=== PATIENT | female | born 1980 | race Caucasian/White ===

== ENCOUNTER 2017-06-16 19:57 | Emergency (ER) | payer BC ==
[2017-06-16 21:42] LABS: Basophils % (A) 0 %; CH 31.2; CHCM 35.5; Eosinophils # (A) 0.1 k/uL (0-0.7); Eosinophils % (A) 1 %; HCT 36.9 % (34.0-46.0); HDW 2.43; HGB 12.8 gm/dL (11.4-16.0); Luc % (Auto) 1; Lymphocytes # (A) 1.2 k/uL (1.0-4.8); Lymphocytes % (A) 10 %; MCH 30.6 pg (25.0-35.0); MCHC 34.7 g/dL (31.0-37.0); Mean Platelet Volume 6.8; Monocytes # (A) 0.4 k/uL (0-1.0); Monocytes % (A) 3 %; Neutrophils # (A) 10.3 k/uL (1.3-7.7); Neutrophils % (A) 85 %; RBC 4.19 m/uL (3.80-5.40); RDW 13.2 % (11.5-15.5); WBC 12.1 k/uL (3.8-10.6); WBC (Perox) 12.13
[2017-06-16 21:43] LABS: Appearance,Urine Clear (Clear); Bacteria,Urine Rare /hpf; Bilirubin,Urine Negative (Negative); Glucose,Urine (UA) Negative (Negative); Ketones,Urine Trace (Negative); Leukocyte Esterase,Urine Moderate (Negative); MCV 88.1 fL (80.0-100.0); Mucus,Urine Rare /hpf; Nitrite,Urine Negative (Negative); Particle Count 885; Protein,Urine Negative (Negative); RBC,Urine 1 /hpf (0-5); Specific Gravity,Urine 1.004 (1.001-1.035); Squamous Epithelial Cell,Urine <1 /hpf (0-4); UA Billing (MACRO vs. MICRO) MICRO; Urobilinogen,Urine <2.0 mg/dL (<2.0); WBC,Urine 16 /hpf (0-5)
[2017-06-16 21:47] LABS: Anion Gap 11 mmol/L; Blood Urea Nitrogen 8 mg/dL (7-17); Calcium 9.8 mg/dL (8.4-10.2); Carbon Dioxide 19 mmol/L (22-30); Chloride 106 mmol/L (98-107); Glucose 104 mg/dL (74-99); Non-African American GFR(MDRD) >60 (>60 ml/min/1.73 sqM); Potassium 3.4 mmol/L (3.5-5.1); Sodium 136 mmol/L (137-145)
[2017-06-16] MEDS ORDERED: NITROFURANTOIN MONOHYD/M-CRYST 100 MG CAP PO STA (22:08)
--- NOTE | 2017-06-16 22:15 | ED ---
Abdominal Pain HPI - General Chief Complaint: Abdominal Pain Stated Complaint: Back/side pain Time Seen by Provider: 06/16/17 20:36 Source: patient Mode of arrival: ambulatory Limitations: no limitations - History of Present Illness Initial Comments: patient is a 36-year-old female, who presents with a chief complaint of left flank abdominal pain since 2:00 this afternoon. Patient states the pain initially started in her flank. She described the pain as sharp and stabbing. Over the day, the pain has moved down toward her groin. The patient states that initially the pain is very intense however it is gotten better over time. The patient states that she does have a history of kidney stones and this is reminiscent. She does not identify any aggravating or alleviating factors. Timing is constant. Patient is 16 weeks and states that she has had an uneventful . She denies any vaginal discharge or bleeding at this time. - Related Data Home Medications Medication Instructions Recorded Confirmed Pnv with Ca,No.72/Iron/FA 1 tab PO DAILY 06/06/14 06/16/17 [ Plus Multivitamin Tab] Loperamide HCl [Imodium A-D] 2 mg PO DAILY PRN 06/16/17 06/16/17 Previous Rx's Medication Instructions Recorded Nitrofurantoin Monohyd/M-Cryst 100 mg PO Q12HR #9 cap 06/16/17 [Macrobid] Allergies Allergy/AdvReac Type Severity Reaction Status Date / Time No Known Allergies Allergy Verified 06/16/17 20:32 Review of Systems ROS Statement: Those systems with pertinent positive or pertinent negative responses have been documented in the HPI. ROS Other: All systems not noted in ROS Statement are negative. Genitourinary: Reports: dysuria Past Medical History Past Medical History: GERD/Reflux, Skin Disorder Additional Past Medical History / Comment(s): gestational diabetes with first two pregnancies, eczema, on Rx for UTI; history of IBS History of Any Multi-Drug Resistant Organisms: None Reported Past Surgical History: Adenoidectomy, Section, Cholecystectomy, Hernia Repair Additional Past Surgical History / Comment(s): myringotomy Past Anesthesia/Blood Transfusion Reactions: Previous Problems w/ Anesthesia Additional Past Anesthesia/Blood Transfusion Reaction / Comment(s): "i feel loopy after" Past Psychological History: No Psychological Hx Reported Smoking Status: Never smoker Past Alcohol Use History: None Reported Past Drug Use History: None Reported - Past Family History Mother Family Medical History: Cancer Additional Family Medical History / Comment(s): Cervical General Exam Limitations: no limitations General appearance: alert, in no apparent distress Head exam: Present: atraumatic, normocephalic ENT exam: Present: mucous membranes moist Respiratory exam: Present: normal lung sounds bilaterally Cardiovascular Exam: Present: regular rate, normal rhythm GI/Abdominal exam: Present: soft. Absent: distended, tenderness Rectal exam: Present: deferred Back exam: Present: CVA tenderness (L). Absent: CVA tenderness (R) Neurological exam: Present: alert, oriented X3, CN II-XII intact, normal gait Psychiatric exam: Present: normal affect, normal mood Skin exam: Present: warm, dry, intact Course Vital Signs 06/16/17 20:19 Temperature 99.1 F Pulse Rate 77 Respiratory 20 Rate Blood Pressure 100/59 O2 Sat by Pulse 100 Oximetry Medical Decision Making - Medical Decision Making patient is a 36-year-old female, 16 weeks , who presents with a chief complaint of flank pain. History and physical examination are consistent with a kidney stone, patient has a history of kidney stones. The patient is I discussed evaluation options with her. The decision was made to check a urinalysis and to forego imaging at this time. Basic lab work was sent. Bedside ultrasound shows a viable intrauterine . Heart rate is 151. 10:13 PM Lab evaluation this patient is unremarkable. Renal function appears B within normal limits. There is scant blood in the urine though there is evidence of infection. Patient was given a first dose of Macrobid in the emergency department. Patient will be prescribed Macrobid on the outpatient basis. On reevaluation, the patient states that her pain is improved. At this time, it is likely that the patient had a renal stone and passed it. I discussed expectant management with her and she is agreeable. I instructed her to use Tylenol for pain control. The patient will follow up with primary care and OB/ [employer]. She is instructed to return to the emergency department if her symptoms worsen or change in anyway. She was given explicit signs and symptoms that should prompt return visit to the emergency department. Her and her state understanding. - Lab Data Result diagrams: 06/16/17 21:25 06/16/17 21:25 Lab Results 06/16/17 06/16/17 06/16/17 Range/Units 21:25 21:25 21:25 WBC 12.1 H (3.8-10.6) k/uL RBC 4.19 (3.80-5.40) m/uL Hgb 12.8 (11.4-16.0) gm/dL Hct 36.9 (34.0-46.0) % MCV 88.1 D (80.0-100.0) fL MCH 30.6 (25.0-35.0) pg MCHC 34.7 (31.0-37.0) g/dL RDW 13.2 (11.5-15.5) % Plt Count 217 (150-450) k/uL Neutrophils % 85 % Lymphocytes % 10 % Monocytes % 3 % Eosinophils % 1 % Basophils % 0 % Neutrophils # 10.3 H (1.3-7.7) k/uL Lymphocytes # 1.2 (1.0-4.8) k/uL Monocytes # 0.4 (0-1.0) k/uL Eosinophils # 0.1 (0-0.7) k/uL Basophils # 0.0 (0-0.2) k/uL Sodium 136 L (137-145) mmol/L Potassium 3.4 L (3.5-5.1) mmol/L Chloride 106 (98-107) mmol/L Carbon Dioxide 19 L (22-30) mmol/L Anion Gap 11 mmol/L BUN 8 (7-17) mg/dL Creatinine 0.44 L (0.52-1.04) mg/dL Est GFR (MDRD) Af Amer >60 (>60 ml/min/1.73 sqM) Est GFR (MDRD) Non-Af >60 (>60 ml/min/1.73 sqM) Glucose 104 H (74-99) mg/dL Calcium 9.8 (8.4-10.2) mg/dL Urine Color Light Yellow Urine Appearance Clear (Clear) Urine pH 6.0 (5.0-8.0) Ur Specific [place] 1.004 (1.001-1.035) Urine Protein Negative (Negative) Urine Glucose (UA) Negative (Negative) Urine Ketones Trace H (Negative) Urine Blood Moderate H (Negative) Urine Nitrite Negative (Negative) Urine Bilirubin Negative (Negative) Urine Urobilinogen <2.0 (<2.0) mg/dL Ur Leukocyte Esterase Moderate H (Negative) Urine RBC 1 (0-5) /hpf Urine WBC 16 H (0-5) /hpf Ur Squamous Epith Cells <1 (0-4) /hpf Urine Bacteria Rare H (None) /hpf Urine Mucus Rare H (None) /hpf Disposition Clinical Impression: Ureterolithiasis, Flank pain Disposition: HOME SELF-CARE Condition: Good Instructions: Abdominal Pain in (ED), Kidney Stones (ED) Prescriptions: Nitrofurantoin Monohyd/M-Cryst [Macrobid] 100 mg PO Q12HR #9 cap Referrals: Mark Alfonso MD [Primary Care Provider] - 1-2 days
[2017-06-16 22:47] VITALS: BP 105/62; PULSE 59; RESP 18; TEMP 98.2
== END 2017-06-16 22:45 | disposition home or self-care (01) ==
LOC: EC 19:57
DX: O99.89 Other specified diseases and conditions complicating pregnancy, childbirth and the puerperium (principal); N20.1 Calculus of ureter; Z3A.16 16 weeks gestation of pregnancy; Z79.899 Other long term (current) drug therapy; Z90.49 Acquired absence of other specified parts of digestive tract
CPT/HCPCS: 36415; 80048; 81001; 85025; 99284

== ENCOUNTER → 2017-09-14 | Outpatient (CLI) | payer BC ==
[2017-09-14 12:53] LABS: HCT 34.7 % (34.0-46.0); HGB 11.1 gm/dL (11.4-16.0); MCH 30.8 pg (25.0-35.0); MCHC 31.9 g/dL (31.0-37.0); MCV 96.4 fL (80.0-100.0); Platelet Count 212 k/uL (150-450); RBC 3.61 m/uL (3.80-5.40); RDW 13.5 % (11.5-15.5)
== END | disposition home or self-care (01) ==
LOC: LABWHC1 11:14
PROVIDERS: ATTEND Obstetrics & Gynecology
DX: Z34.82 Encounter for supervision of other normal pregnancy, second trimester (principal); Z3A.00 Weeks of gestation of pregnancy not specified
CPT/HCPCS: 36415; 82950; 85027

== ENCOUNTER → 2017-09-22 | Outpatient (CLI) | payer BC ==
[2017-09-22 13:05] LABS: Glucose 3 Hour, Gest 147 mg/dL
== END | disposition home or self-care (01) ==
LOC: LABWHC1 08:43
PROVIDERS: ATTEND Obstetrics & Gynecology
DX: O99.810 Abnormal glucose complicating pregnancy (principal); Z3A.00 Weeks of gestation of pregnancy not specified
CPT/HCPCS: 36415; 82951; 82952

== ENCOUNTER 2017-11-25 08:52 | Inpatient (IN) | payer BC ==
[2017-11-25 09:41] LABS: Glucose,Whole Blood 112 mg/dL (75-99)
[2017-11-25] MEDS: LACTATED RINGERS 1,000 ML IV SCH ×3 (09:53→20:40)
[2017-11-25 10:06] LABS: Appearance,Urine Cloudy (Clear); Bacteria,Urine Occasional /hpf; Bilirubin,Urine Negative (Negative); Blood,Urine Small (Negative); Color,Urine Yellow; Glucose,Urine (UA) Negative (Negative); Ketones,Urine 2+ (Negative); Leukocyte Esterase,Urine Large (Negative); Mucus,Urine Rare /hpf; Nitrite,Urine Negative (Negative); Protein,Urine Trace (Negative); RBC,Urine 14 /hpf (0-5); Specific Gravity,Urine 1.011 (1.001-1.035); Squamous Epithelial Cell,Urine 8 /hpf (0-4); Urobilinogen,Urine <2.0 mg/dL (<2.0); WBC,Urine 176 /hpf (0-5)
[2017-11-25 10:09] VITALS: RESP 18
[2017-11-25 10:14] LABS: Basophils % (A) 0 %; Eosinophils # (A) 0.1 k/uL (0-0.7); Eosinophils % (A) 1 %; HCT 35.5 % (34.0-46.0); HGB 12.3 gm/dL (11.4-16.0); Lymphocytes # (A) 0.8 k/uL (1.0-4.8); Lymphocytes % (A) 6 %; MCHC 34.6 g/dL (31.0-37.0); MCV 89.6 fL (80.0-100.0); Mean Platelet Volume 8.3; Monocytes # (A) 0.7 k/uL (0-1.0); Monocytes % (A) 5 %; Neutrophils # (A) 12.2 k/uL (1.3-7.7); Neutrophils % (A) 88 %; Platelet Count 155 k/uL (150-450); RBC 3.96 m/uL (3.80-5.40); RDW 14.4 % (11.5-15.5)
--- NOTE | 2017-11-25 10:26 | US ---
EXAMINATION TYPE: US kidneys/renal and bladder DATE OF EXAM: 11/25/2017 COMPARISON: NONE CLINICAL HISTORY: rule out kidney stones. EXAM MEASUREMENTS: Right Kidney: 11.1 x 5.5 x 4.4 cm Left Kidney: 13.3 x 6.9 x 5.6 cm Right Kidney: Echogenic foci visualized in the lower pole measuring 0.7 cm. Small amount of hydroneph rosis visualized Left Kidney: Echogenic foci visualized lower pole measuring 0.9 cm Bladder: Not distended Bilateral Jets seen: No, bladder not distended IMPRESSION: Nonobstructing nephrolithiasis.
[2017-11-25] MEDS: BUTORPHANOL 1 MG/ML 1 ML VIAL IV PRN ×3 (10:35→16:28)
[2017-11-25] MEDS: ceFAZolin IN SWFI 2 GM/20 ML SYRINGE IVP SCH ×2 (10:40→19:17)
[2017-11-25 10:54] VITALS: BMI 32.2
--- NOTE | 2017-11-25 11:24 | P.MSEPDOC ---
Presenting Problems - Arrival Data Date of Arrival on Unit: 11/25/17 Time of Arrival on Unit: 08:52 Mode of Transport: Portable - Complaint OB-Reason for Admission/Chief Complaint: Pain Comment: back pain that wraps around to the front Medical History - Information : 5 Para: 3 Term: 3 : 0 Abortions: Spontaneous or Elective: 1 Number of Living Children: 3 - Gestational Age Gestational Age by ORTEGA (wks/days): 38 Weeks and 2 Days - History Complications: GDM Review of Systems - Review of Systems Constitutional: No problems Breast: No problems ENT: No problems Cardiovascular: No problems Respiratory: No problems Gastrointestinal: No problems Genitourinary: No problems Musculoskeletal: No problems Neurological: No problems Skin: No problems Vital Signs - Temperature Temperature: 98.7 F Temperature Source: Temporal Artery Scan - Pulse Right Brachial Pulse Rate: 121 Pulse Assessment Method: Automatic Cuff - Respirations Respiratory Rate: 18 Oxygen Delivery Method: Room Air O2 Sat by Pulse Oximetry: 94 - Blood Pressure Right Arm Blood Pressure: 118/69 Blood Pressure Mean: 85 Blood Pressure Source: Automatic Cuff Medical Screen Scoring (Pre) - Cervical Exam Dilation: 0 cm = 0 Effacement: More than 50% = 2 Membranes: Intact - Uterine Contractions Frequency: > or = 36 weeks =2 Duration: > 40 seconds = 2 Intensity: N/A - Maternal Vital Signs Maternal Temperature: N/A Maternal Blood Pressure: N/A Signs of Preeclampsia: N/A Maternal Respirations: N/A - Pain Assessment Pain Location and Character: Left, Back Pain Scale Used: Numeric (1 - 10) Pain Intensity: 10 Pain Description: *Acute Pain Radiation Location: abd Pain Frequency: Constant Pain Duration: 12 Pain Duration Units: Hours Pain Behavior: Guarding, Nausea, Vocalization Pain Aggravating Factors: Activity, Position - Maternal Trauma Maternal Trauma: N/A - Assessment Baseline FHR: 145 Heart Rate - NICHD Category: Category I (Normal) = 0 NST: Reactive Position: N/A Station: N/A - Total Score Total Score (Pre): 6 - Level of Risk Level of Risk: Medium (6-9) Physician Notification (Pre) - Physician Notified Physician Notified Date: 11/25/17 Physician Notified Time: 09:31 Physician/Practitioner Notifed:: Dr. Swenson Spoke With: Dr. Swenson New Order Received: Yes - Notification Comment Comment: send ua, urine culture, cbc, give bolus of IV fluids of 500ml then run at 150ml/hr, obtain bilateral renal and kidney u/s, call with results Physician Notification (Post) - Physician Notified Physician Notified Date: 11/25/17 Physician Notified Time: 10:19 Physician/Practitioner Notified:: Dr. Swenson Spoke With: Dr. Swenson New Order Received: Yes - Notification Comment Comment: admit for kidney infection, orders to be put in by Dr. Swenson for pain meds and antibiotics Disposition - Disposition OB Disposition: Admit, LDRP Suite I agree with the RN Medical Screening Exam: Yes Risk & Benefit of care provided described in d/c instruction: Yes Diagnosis: CALCULUS OF KIDNEY
--- NOTE | 2017-11-25 12:18 | P.HPOB ---
History of Present Illness H&P Date: 11/25/17 Chief Complaint: Left flank pain. This patient is a pleasant 37-year-old 5 para 3 female estimated date of confinement 12/07/2017 estimated gestational age 38-2/7 weeks who presents to labor and delivery with complaints of sudden onset of left flank pain since last evening. Patient has a history of kidney stones that were diagnosed earlier in this . She had been doing well but states this pain came on severe last evening and was not relieved with Tylenol. Patient states the pain was constant and did not think it was contractions. Pain became much worse this morning she presented to labor and delivery for evaluation. Patient' s care otherwise has been complicated by advanced maternal age and an EIF. Patient also was diagnosed with gestational diabetes and was seen by maternal medicine and is having Glucola regulation per them. She is currently on insulin. Level III ultrasound at [facility] has been normal. Patient's had previous C-sections and scheduled for repeat next Thursday. Nonstress testing has been normal. Growth ultrasounds have shown large for gestational age. Review of Systems Constitutional: Denies chills, Denies fever Genitourinary: Reports Menstruation: Reports amenorrhea Musculoskeletal: Reports low back pain Past Medical History Past Medical History: GERD/Reflux, Skin Disorder Additional Past Medical History / Comment(s): gestational diabetes with first two pregnancies, eczema, on Rx for UTI; history of IBS; history of kidney stones this . History of Any Multi-Drug Resistant Organisms: None Reported Past Surgical History: Adenoidectomy, Section, Cholecystectomy, Hernia Repair Additional Past Surgical History / Comment(s): myringotomy Past Anesthesia/Blood Transfusion Reactions: Previous Problems w/ Anesthesia Additional Past Anesthesia/Blood Transfusion Reaction / Comment(s): "i feel loopy after" Past Psychological History: No Psychological Hx Reported Smoking Status: Never smoker Past Alcohol Use History: None Reported Past Drug Use History: None Reported - Past Family History Mother Family Medical History: Cancer Additional Family Medical History / Comment(s): Cervical Medications and Allergies Home Medications Medication Instructions Recorded Confirmed Type Pnv with Ca,No.72/Iron/FA 1 tab PO DAILY 06/06/14 11/25/17 History [ Plus Multivitamin Tab] Acetaminophen Tab [Tylenol Tab] 500 - 1,000 mg PO Q4H #30 tablet 06/16/17 Rx Loperamide HCl [Imodium A-D] 2 mg PO DAILY PRN 06/16/17 11/25/17 History INSULIN LISPRO (humaLOG) [humaLOG] 5 units SQ AC-TID 11/25/17 11/25/17 History Insulin Detemir [Levemir] 17 unit SQ HS 11/25/17 11/25/17 History Allergies Allergy/AdvReac Type Severity Reaction Status Date / Time No Known Allergies Allergy Verified 06/16/17 20:32 Exam - Vital Signs Vital signs: Vital Signs Temp Pulse Resp BP Pulse Ox 11/25/17 11:24 98.7 F 121 H 18 118/69 94 L 11/25/17 10:44 98.7 F 121 H 18 118/69 94 L 11/25/17 09:31 98.0 F 104 H 18 134/84 Intake and Output 11/24/17 11/25/17 11/25/17 22:59 06:59 14:59 Other: Weight 67.585 kg - OBG Physical Exam Patient has left flank pain on palpation. Abdomen soft nontender gravid Results Kidney ultrasound shows bilateral renal stones. Nonstress test is reactive. Urine shows leukocyte esterase, white blood cells, red blood cells. Result Diagrams: 11/25/17 09:53 Abnormal Lab Results - Last 24 Hours (Table) 11/25/17 11/25/17 11/25/17 Range/Units 09:26 09:30 09:53 WBC 14.0 H (3.8-10.6) k/uL Neutrophils # 12.2 H (1.3-7.7) k/uL Lymphocytes # 0.8 L (1.0-4.8) k/uL POC Glucose (mg/dL) 112 H (75-99) mg/dL Urine Appearance Cloudy H (Clear) Urine Protein Trace H (Negative) Urine Ketones 2+ H (Negative) Urine Blood Small H (Negative) Ur Leukocyte Esterase Large H (Negative) Urine RBC 14 H (0-5) /hpf Urine WBC 176 H (0-5) /hpf Urine WBC Clumps Few H (None) /hpf Ur Squamous Epith Cells 8 H (0-4) /hpf Urine Bacteria Occasional H (None) /hpf Urine Mucus Rare H (None) /hpf Assessment and Plan Assessment: This is a pleasant 37-year-old 5 para 3 female 38-2/7 weeks gestation sudden onset left sided flank pain. Evaluation at this time shows bilateral renal calculi. There is no significant hydronephrosis. Nonstress testing is normal. Patient is having irregular contractions with cervix was not dilated and she is not feeling them. My impression this time as her pain is due to the kidney stones however her urine is suggestive of possible infection. She has no fever or evidence of pyelonephritis. Plan at this time is IV antibiotics, IV hydration, and screenings urine. We'll give her IV pain medicines to control her pain. At this point I have discussed with her I do not have an indication to proceed with delivery. If she does well overnight of discharge home tomorrow. (1) Third trimester Current Visit: Yes Status: Acute Code(s): Z34.93 - ENCNTR FOR SUPRVSN OF NORMAL PREG, UNSP, THIRD TRIMESTER SNOMED Code(s): 66315819 (2) Gestational diabetes mellitus (GDM) Current Visit: Yes Status: Acute Code(s): O24.419 - GESTATIONAL DIABETES MELLITUS IN , UNSP CONTROL SNOMED Code(s): 85504305 (3) Previous delivery affecting Current Visit: Yes Status: Acute Code(s): O34.219 - MATERNAL CARE FOR UNSP TYPE SCAR FROM PREVIOUS DEL SNOMED Code(s): 710971168 (4) Renal calculus, bilateral Current Visit: Yes Status: Acute Code(s): N20.0 - CALCULUS OF KIDNEY SNOMED Code(s): 36631103
[2017-11-25] MEDS ORDERED: ONDANSETRON 4 MG/2 ML VIAL IVP PRN (12:29)
[2017-11-25] MEDS ORDERED: INSULIN ASPART 100 UNIT/ML 1 ML 10 ML VIAL SQ SCH ×2 (12:30→17:30)
[2017-11-25 13:10] LABS: Glucose,Whole Blood 106 mg/dL (75-99)
[2017-11-25] MEDS ORDERED: INSULIN DETEMIR 100 UNIT/ML 10 ML VIAL SQ SCH (21:00)
[2017-11-26] MEDS: LACTATED RINGERS 1,000 ML IV SCH (03:34)
[2017-11-26] MEDS: ceFAZolin IN SWFI 2 GM/20 ML SYRINGE IVP SCH (03:34)
--- NOTE | 2017-11-26 06:20 | P.PN ---
Progress Note - Text Progress Note Date: 11/26/17 Patient is resting without new complaints. She has not required any pain medications since 5:00 last evening. She states that her pain is markedly improved she does still have some vague left flank pain however nothing like when she first came in. Vital signs are stable. She is received 3 doses of Ancef. Urine culture is pending. My impression is that she has bilateral renal calculi which are now stable and tolerable with Tylenol. Plan is discharge home on . She'll follow-up on Thursday for her section or earlier if necessary.
--- NOTE | 2017-11-26 06:23 | P.DS ---
Providers Date of admission: 11/25/17 10:18 Expected date of discharge: 11/26/17 Attending physician: David Swenson - Discharge Diagnosis(es) (1) Third trimester Please see dictated H&P for intimate details of this patient's admission. Brief summary is a pleasant 37-year-old female 38-2/7 weeks gestation admitted to labor and delivery with severe left-sided flank pain. Patient is a history of kidney stones and ultrasound shows bilateral kidney stones. Patient is placed on IV antibiotics, IV pain medications and IV hydration. Pain does improve and on the following day patient's felt be stable for discharge home follow up with me on Thursday for her section. Current Visit: Yes Status: Acute (2) Gestational diabetes mellitus (GDM) Current Visit: Yes Status: Acute (3) Previous delivery affecting Current Visit: Yes Status: Acute (4) Renal calculus, bilateral Current Visit: Yes Status: Acute Plan - Discharge Summary New Discharge Prescriptions: New Cephalexin [Keflex] 500 mg PO Q6HR #28 cap No Action Pnv with Ca,No.72/Iron/FA [ Plus Multivitamin Tab] 1 tab PO DAILY Loperamide HCl [Imodium A-D] 2 mg PO DAILY PRN PRN Reason: Diarrhea Acetaminophen Tab [Tylenol Tab] 500 - 1,000 mg PO Q4H #30 tablet INSULIN LISPRO (humaLOG) [humaLOG] 5 units SQ AC-TID Insulin Detemir [Levemir] 17 unit SQ HS Discharge Medication List Pnv with Ca,No.72/Iron/FA [ Plus Multivitamin Tab] 1 tab PO DAILY [History] Acetaminophen Tab [Tylenol Tab] 500 - 1,000 mg PO Q4H #30 tablet 06/16/17 [Rx] Loperamide HCl [Imodium A-D] 2 mg PO DAILY PRN 06/16/17 [History] INSULIN LISPRO (humaLOG) [humaLOG] 5 units SQ AC-TID 11/25/17 [History] Insulin Detemir [Levemir] 17 unit SQ HS 11/25/17 [History] Cephalexin [Keflex] 500 mg PO Q6HR #28 cap 11/26/17 [Rx] Follow up Appointment(s)/Referral(s): David Swenson MD [STAFF PHYSICIAN] - 12/01/17 Patient Instructions/Handouts: Kidney Stones (DC) Discharge Disposition: HOME SELF-CARE
[2017-11-26] MEDS ORDERED: INSULIN ASPART 100 UNIT/ML 1 ML 10 ML VIAL SQ SCH (07:30)
[2017-11-26 10:11] VITALS: BP 102/66; PULSE 75; TEMP 97.9
== END 2017-11-26 11:28 | disposition home or self-care (01) | DRG 781 ==
LOC: FBPOP 08:52 → OBSVTOIN 10:18 → 4FBP 10:18 → UNDODISOB 11-26 11:28
PROVIDERS: ADMIT Obstetrics & Gynecology; ATTEND Obstetrics & Gynecology
DX: O26.833 Pregnancy related renal disease, third trimester (principal); N20.0 Calculus of kidney; Z3A.38 38 weeks gestation of pregnancy; O34.219 Maternal care for unspecified type scar from previous cesarean delivery; O36.63X0 Maternal care for excessive fetal growth, third trimester, not applicable or unspecified; O24.414 Gestational diabetes mellitus in pregnancy, insulin controlled
CPT/HCPCS: 59025; 76770; 81001; 85025; 87086; 96360; 99214

== ENCOUNTER 2017-12-01 06:02 | Inpatient (IN) | payer BC ==
--- NOTE | 2017-11-30 06:30 | P.HPOB ---
History of Present Illness H&P Date: 11/30/17 Chief Complaint: Patient is presenting for repeat section, possible tubal ligation. This patient is a pleasant 37-year-old 5 para 3 female estimated date of confinement 12/07/2017 estimated gestational age 39 and one sevenths weeks who presents to labor and delivery for elective repeat section and also possible tubal ligation. Patient's care is been complicated by gestational diabetes which has required insulin is managed by maternal medicine. She also had a EIF which appears to be a normal finding. She did have a level III ultrasound but declined any genetic testing otherwise. Patient 's been followed with nonstress tests and growth ultrasounds does show macrosomia. Patient has a history of this. Patient also has had kidney stones throughout the has required hospitalization for pain control. Review of Systems Gastrointestinal: Reports heartburn Genitourinary: Reports Menstruation: Reports amenorrhea Past Medical History Past Medical History: GERD/Reflux, Skin Disorder Additional Past Medical History / Comment(s): gestational diabetes with first two pregnancies, eczema, on Rx for UTI; history of IBS; renal calculi. History of Any Multi-Drug Resistant Organisms: None Reported Past Surgical History: Adenoidectomy, Section, Cholecystectomy, Hernia Repair Additional Past Surgical History / Comment(s): myringotomy Past Anesthesia/Blood Transfusion Reactions: Previous Problems w/ Anesthesia Additional Past Anesthesia/Blood Transfusion Reaction / Comment(s): "i feel loopy after" Past Psychological History: No Psychological Hx Reported Smoking Status: Never smoker Past Alcohol Use History: None Reported Past Drug Use History: None Reported - Past Family History Mother Family Medical History: Cancer Additional Family Medical History / Comment(s): Cervical Medications and Allergies Home Medications Medication Instructions Recorded Confirmed Type Pnv with Ca,No.72/Iron/FA 1 tab PO DAILY 06/06/14 11/25/17 History [ Plus Multivitamin Tab] Acetaminophen Tab [Tylenol Tab] 500 - 1,000 mg PO Q4H #30 tablet 06/16/17 Rx Loperamide HCl [Imodium A-D] 2 mg PO DAILY PRN 06/16/17 11/25/17 History INSULIN LISPRO (humaLOG) [humaLOG] 5 units SQ AC-TID 11/25/17 11/25/17 History Insulin Detemir [Levemir] 17 unit SQ HS 11/25/17 11/25/17 History Cephalexin [Keflex] 500 mg PO Q6HR #28 cap 11/26/17 Rx Allergies Allergy/AdvReac Type Severity Reaction Status Date / Time No Known Allergies Allergy Verified 06/16/17 20:32 Exam - OBG Physical Exam Abdomen: bowel sounds normal, no diffuse tenderness, no bruit present, no guarding noted, no hepatomegaly, no splenomegaly, no mass Vulva: both: normal Vagina: normal moisture, no discharge Cervix: no lesion (Cervix in the office previously was closed.), no discharge Uterus: enlarged (Fundal height is 41 cm.) Results blood work shows she is O positive, rubella immune, RPR nonreactive, hepatitis B negative, HIV nonreactive, group B strep was negative, Glucola was 176 with an abnormal 3 hour gtt. Ultrasounds as above. Assessment and Plan Assessment: This is a pleasant 37-year-old 5 para 3 female 39 and one sevenths weeks gestation who presents to labor and delivery for elective repeat section and possible tubal ligation. Patient is undecided at the time of this dictation about tubal ligation or not. She does understand that future pregnancies have significant risks that I do recommend some type of permanent control but this is her decision. Patient does understand the surgery and risks including risks of infection, bleeding, possible injury bowel, bladder , vessels, and/or other organs. Patient also understands risk of DVT and pulmonary embolism. All the patient's questions are answered and written consent is obtained. (1) Gestational diabetes mellitus (GDM) Status: Acute Code(s): O24.419 - GESTATIONAL DIABETES MELLITUS IN , UNSP CONTROL SNOMED Code(s): 16337006 (2) Previous delivery affecting Status: Acute Code(s): O34.21 - MATERNAL CARE FOR SCAR FROM PREVIOUS * DO NOT USE * SNOMED Code(s): 596470734 (3) Renal calculus, bilateral Status: Acute Code(s): N20.0 - CALCULUS OF KIDNEY SNOMED Code(s): 02370241
[2017-12-01 06:17] VITALS: BMI 32.2
[2017-12-01] MEDS ORDERED: CITRIC ACID-SODIUM CITRATE 15 ML CUP PO ONE (06:19)
[2017-12-01] MEDS ORDERED: LACTATED RINGERS 1,000 ML IV ONE (06:19)
[2017-12-01 06:49] LABS: Basophils % (A) 0 %; Eosinophils # (A) 0.1 k/uL (0-0.7); Eosinophils % (A) 1 %; HCT 33.3 % (34.0-46.0); HGB 11.4 gm/dL (11.4-16.0); Lymphocytes # (A) 1.7 k/uL (1.0-4.8); Lymphocytes % (A) 21 %; MCH 30.6 pg (25.0-35.0); MCHC 34.1 g/dL (31.0-37.0); MCV 89.8 fL (80.0-100.0); Mean Platelet Volume 7.6; Monocytes # (A) 0.4 k/uL (0-1.0); Monocytes % (A) 5 %; Neutrophils # (A) 5.8 k/uL (1.3-7.7); Neutrophils % (A) 71 %; Platelet Count 201 k/uL (150-450); RBC 3.71 m/uL (3.80-5.40); WBC 8.1 k/uL (3.8-10.6)
[2017-12-01] MEDS ORDERED: ceFAZolin IN SWFI 2 GM/20 ML SYRINGE IVP ONE (07:15)
[2017-12-01] MEDS ORDERED: KETOROLAC 30 MG/ML 1 ML VIAL ONE (07:49)
[2017-12-01] MEDS ORDERED: NALBUPHINE 10 MG/ML AMPUL ONE (07:49)
[2017-12-01] MEDS ORDERED: diphenhydrAMINE 50 MG/ML 1 ML VIAL ONE (07:49)
[2017-12-01] MEDS ORDERED: PHENYLEPHRINE-0.9% NACL SYG 1 MG/10 ML SYRINGE ONE (07:49)
[2017-12-01] MEDS ORDERED: MORPHINE SULFATE (PF) 0.3 MG/0.3 ML SYR ONE (07:49)
[2017-12-01] MEDS ORDERED: ONDANSETRON 4 MG/2 ML VIAL ONE (07:49)
[2017-12-01] MEDS ORDERED: OXYTOCIN 10 UNIT/ML 1 ML VIAL ONE (07:49)
[2017-12-01] MEDS ORDERED: DEXAMETHASONE SOD PHOS (MDV) 100 MG/10 ML VIAL ONE (07:49)
--- NOTE | 2017-12-01 08:47 | P.OP ---
Date of Procedure: 12/01/17 Preoperative Diagnosis: #1: 39 and one sevenths week intrauterine . #2: Previous low transverse section 3 desires repeat #3: Multi parity desires permanent sterilization. #4 gestational diabetes insulin-dependent #5 elderly multipara Postoperative Diagnosis: Same, thin lower uterine segment Procedure(s) Performed: #1: Repeat low transverse section. #2: Bilateral partial salpingectomy Anesthesia: spinal Surgeon: David Swenson Maintenance Welder #1: Dandre Buchanan Estimated Blood Loss (ml): 800 Pathology: other (Placenta and bilateral fallopian tube segments) Condition: stable Disposition: floor Indications for Procedure: Please see dictated H&P for intimate details of this patient's admission. Brief summary this is a pleasant 37-year-old 5 para 3 female 39 and one sevenths weeks gestation who is admitted to labor and delivery for elective repeat section and also requesting permanent sterilization. Patient understands a tubal ligation is permanent however there is a failure rate of approximately 5-10 per thousand procedures done. She understands surgery itself has risks including risks of infection, bleeding, possible injury bowel, bladder, vessels, and/or other organs. She understands the risk of DVT and pulmonary embolism. All the patient's questions are answered and a written consent is obtained. Operative Findings: This is a vigorous viable male infant Apgars are 9 and 9 delivery time is 0808 hrs. this patient had a thin lower uterine segment on the left side. Description of Procedure: This patient has a Salamanca catheter placed to straight drain. She is subsequently taken to the operating room where she sat up and spinal anesthetic is administered without incident. With an adequate level of anesthesia she has abdominal prep and drape. Scalpels then taken the previous Pfannenstiel incision is incised. A second scalpel is taken down to the fascia and the fascia scored with a knife. Fascial incision extended bilaterally using the Butt scissors. Fascia is then dissected off the rectus muscles sharply. Rectus muscles are and the peritoneum identified and entered sharply. Peritoneal incision extended superior and inferior without difficulty. Bladder peritoneum was then taken off the lower uterine segment. The lower uterine segment is very thin on the left side. This reason I incised high above this. This is a low transverse uterine incision. I then using a hemostat to enter the uterine cavity bluntly. There is loss of clear fluid. This incision is extended bluntly and the infant head is delivered atraumatically with fundal pressure. Mouth and nares are bulb suctioned. Reason nuchal cord which is loose 2 and reduced. Then have delivery the rest of this 's body. This is a vigorous viable male infant Apgars are 9 and 9 delivery time is 0808 hrs. After delivery of the infant the umbilical cord is doubly clamped and cut and appears to be trivascular. The placenta is then manually extracted intact. Uterus is then externalized and the uterine incision demarcated with Seaman clamps. Uterine incision appears to be clear of all debris. Carefully then I reapproximate the uterine incision using 0 Vicryl running locked fashion in 2 layers. There is some bleeding on the left side which requires additional 0 Vicryl sutures and excellent hemostasis is noted. With this done the bladder peritoneum was then reapproximated using a 3-0 Vicryl. Then turned my attention of left fallopian tube and approximately 4 cm from the cornual insertion I make a small window through the mesial salpinx with Bovie cautery. Using a 2-0 silk I doubly ligate a knuckle the tube and a 2 cm segment of tube was excised and handed off to pathology. Cauterization is done of the tubal ends and excellent hemostasis is noted a similar technique is done on the right side with similar results. With this done and good hemostasis noted excess fluid is removed from the abdomen and pelvis. Uterus placed back into the abdomen. The parietal peritoneum was then identified with hemostats. I do a final inspection of the fallopian tubes and the are hemostatic. The parietal peritoneum was then closed using 0 Vicryl running fashion. Rectus muscles reapproximated in 0 Vicryl interrupted fashion. The fascia is then closed using 0 PDS. Fascial incision is intact and hemostatic. Subcutaneous tissues and reapproximated using a 3-0 Vicryl. Skin is and closed using ander. Sterile dressing was then applied. I did put a pressure dressing on because this was very edematous and somewhat oozy. All counts are correct 3. There are no complications. Patient is taken to the birthing suite in satisfactory condition.
[2017-12-01] MEDS ORDERED: ZOLPIDEM 5 MG TAB PO PRN (08:48)
[2017-12-01] MEDS ORDERED: diphenhydrAMINE 25 MG CAP PO PRN (08:48)
[2017-12-01] MEDS ORDERED: diphenhydrAMINE 50 MG/ML 1 ML VIAL IVP PRN (08:48)
[2017-12-01] MEDS ORDERED: NALOXONE 0.4 MG/ML 1 ML VIAL IV PRN ×2 (08:48→12:54)
[2017-12-01] MEDS ORDERED: OXYTOCIN 20 UNITS/1000 ML NS 1,000 ML IV SCH (08:48)
[2017-12-01] MEDS ORDERED: METOCLOPRAMIDE 5 MG/ML 2 ML VIAL IVP PRN (08:48)
[2017-12-01] MEDS ORDERED: ONDANSETRON 4 MG/2 ML VIAL IVP PRN (08:48)
[2017-12-01] MEDS ORDERED: SIMETHICONE 80 MG CHEWABLE PO PRN (08:48)
[2017-12-01] MEDS ORDERED: MORPHINE SULFATE 4 MG/ML SYRINGE IVP PRN (12:54)
[2017-12-01] MEDS: LACTATED RINGERS 1,000 ML IV SCH ×3 (15:37→17:59)
[2017-12-01] MEDS: SENNOSIDES-DOCUSATE SODIUM 1 EACH TAB PO SCH ×2 (15:37→22:10)
[2017-12-01] MEDS: KETOROLAC 30 MG/ML 1 ML VIAL IVP PRN (18:12)
[2017-12-02] MEDS: KETOROLAC 30 MG/ML 1 ML VIAL IVP PRN (04:07)
--- NOTE | 2017-12-02 05:43 | P.PN ---
Progress Note - Text Progress Note Date: 12/02/17 Postoperative day 1 status post section under spinal anesthesia, and intrathecal morphine given for postoperative analgesia, patient doing well, there is no paresthesia related complications, patient has no complaints of pruritus, and has been ambulating. further management as per her primary team
--- NOTE | 2017-12-02 06:14 | P.PNOBGPC ---
Subjective - Subjective Patient reports: Reports appetite normal, Reports voiding normally, Reports pain well controlled, Reports ambulating normally : doing well Objective - Vital Signs Latest vital signs: Vital Signs Temp Pulse Resp BP Pulse Ox 12/02/17 06:09 16 99 12/02/17 05:00 16 99 12/02/17 04:00 97.9 F 67 16 113/71 99 12/02/17 03:00 16 99 12/02/17 01:00 16 99 12/02/17 00:00 98.1 F 61 16 102/67 99 12/01/17 23:00 16 99 12/01/17 21:00 16 99 12/01/17 19:56 97.5 F L 50 L 16 110/66 12/01/17 19:00 17 12/01/17 17:00 16 12/01/17 16:00 97.9 F 63 17 106/78 97 12/01/17 15:54 18 12/01/17 13:54 97.8 F 55 L 16 97 12/01/17 12:54 56 L 18 97 12/01/17 12:00 98.0 F 58 L 16 125/68 12/01/17 10:49 52 L 16 113/58 12/01/17 10:19 97.9 F 51 L 16 115/64 12/01/17 09:49 97.2 F L 52 L 18 125/75 12/01/17 09:34 51 L 16 120/72 12/01/17 09:19 97.7 F 54 L 16 108/61 12/01/17 09:04 97.3 F L 52 L 16 119/64 12/01/17 08:49 96.0 F L 59 L 16 112/61 12/01/17 06:14 98.4 F 68 16 124/67 Intake and Output 12/01/17 12/01/17 12/02/17 14:59 22:59 06:59 Output Total 800 1225 Balance -800 -1225 Output: Urine 1225 Uretheral (Salamanca) 500 Estimated Blood Loss 800 Other: # Voids 1 1 - Exam Lungs: bilateral: normal Chest: Normal S1, Normal S2 Extremities: Present: normal Abdomen: Present: normal appearance, soft. Absent: distention, tenderness Incision: Present: normal, dry, intact Uterus: Present: normal, firm - Labs Labs: Abnormal Lab Results - Last 24 Hours (Table) 12/01/17 Range/Units 06:30 RBC 3.71 L (3.80-5.40) m/uL Hct 33.3 L (34.0-46.0) % Assessment and Plan Assessment: Post operative day #1. Patient is resting without complaints. Vital signs are stable and she is afebrile. Uterus is firm nontender and her incision is intact and dry. Patient's ambulating and urinating without difficulty. She's tolerating a regular diet. Plan today is to check a CBC and continue routine postoperative care. Most likely will go home tomorrow. (1) Gestational diabetes mellitus (GDM) Current Visit: No Status: Acute Code(s): O24.419 - GESTATIONAL DIABETES MELLITUS IN , UNSP CONTROL SNOMED Code(s): 42715540 (2) Previous delivery affecting Current Visit: No Status: Acute Code(s): O34.21 - MATERNAL CARE FOR SCAR FROM PREVIOUS * DO NOT USE * SNOMED Code(s): 354145826 (3) Renal calculus, bilateral Current Visit: No Status: Acute Code(s): N20.0 - CALCULUS OF KIDNEY SNOMED Code(s): 36983106
[2017-12-02 07:41] LABS: Basophils % (A) 0 %; Eosinophils # (A) 0.2 k/uL (0-0.7); Eosinophils % (A) 1 %; HCT 32.7 % (34.0-46.0); Lymphocytes % (A) 16 %; MCH 30.6 pg (25.0-35.0); MCHC 33.6 g/dL (31.0-37.0); MCV 91.1 fL (80.0-100.0); Mean Platelet Volume 7.9; Monocytes # (A) 0.7 k/uL (0-1.0); Monocytes % (A) 5 %; Neutrophils # (A) 9.5 k/uL (1.3-7.7); Neutrophils % (A) 75 %; Platelet Count 188 k/uL (150-450); RBC 3.59 m/uL (3.80-5.40); WBC 12.6 k/uL (3.8-10.6)
[2017-12-02] MEDS: SENNOSIDES-DOCUSATE SODIUM 1 EACH TAB PO SCH ×2 (09:41→20:41)
[2017-12-02] MEDS: IBUPROFEN 600 MG TAB PO PRN ×3 (10:41→23:25)
[2017-12-02] MEDS: ACETAMINOPHEN TAB 325 MG TAB PO PRN ×2 (13:46→20:41)
[2017-12-03] MEDS: ACETAMINOPHEN TAB 325 MG TAB PO PRN ×2 (02:01→07:43)
[2017-12-03] MEDS: IBUPROFEN 600 MG TAB PO PRN ×2 (04:41→11:12)
--- NOTE | 2017-12-03 06:02 | P.PNOBGPC ---
Subjective - Subjective Patient reports: Reports appetite normal, Reports voiding normally, Reports pain well controlled, Reports ambulating normally : doing well Objective - Vital Signs Latest vital signs: Vital Signs Temp Pulse Resp BP Pulse Ox 12/03/17 00:00 98.0 F 71 16 119/74 98 12/02/17 16:00 97.8 F 72 18 114/72 97 12/02/17 08:00 98.3 F 71 18 117/68 98 12/02/17 06:09 16 99 Intake and Output 12/02/17 12/02/17 12/03/17 14:59 22:59 06:59 Other: # Voids 2 2 - Exam Lungs: bilateral: normal Chest: Normal S1, Normal S2 Extremities: Present: normal Abdomen: Present: normal appearance, soft. Absent: distention, tenderness Incision: Present: normal, dry, intact Uterus: Present: normal, firm - Labs Labs: Abnormal Lab Results - Last 24 Hours (Table) 12/02/17 Range/Units 07:25 WBC 12.6 H (3.8-10.6) k/uL RBC 3.59 L (3.80-5.40) m/uL Hgb 11.0 L (11.4-16.0) gm/dL Hct 32.7 L (34.0-46.0) % Neutrophils # 9.5 H (1.3-7.7) k/uL Assessment and Plan Assessment: Post operative day #2. Patient is resting without complaints and wishes to go home. Vital signs are stable she's afebrile. Uterus is firm nontender and her incision is intact and dry. Patient's tolerating regular diet, urinating, ambulating without difficulty. My impression is a normal postoperative course. Plan is to continue routine postoperative care discharge home later today. (1) Gestational diabetes mellitus (GDM) Current Visit: No Status: Acute Code(s): O24.419 - GESTATIONAL DIABETES MELLITUS IN , UNSP CONTROL SNOMED Code(s): 18437394 (2) Previous delivery affecting Current Visit: No Status: Acute Code(s): O34.21 - MATERNAL CARE FOR SCAR FROM PREVIOUS * DO NOT USE * SNOMED Code(s): 081848982 (3) Renal calculus, bilateral Current Visit: No Status: Acute Code(s): N20.0 - CALCULUS OF KIDNEY SNOMED Code(s): 22080164
--- NOTE | 2017-12-03 06:04 | P.DS ---
Providers Date of admission: 12/01/17 06:02 Expected date of discharge: 12/03/17 Attending physician: David Swenson Primary care physician: Stated None - Discharge Diagnosis(es) (1) Gestational diabetes mellitus (GDM) Current Visit: No Status: Acute (2) Previous delivery affecting Current Visit: No Status: Acute (3) Renal calculus, bilateral Current Visit: No Status: Acute Hospital Course: Please see dictated H&P for intimate details of this patient's admission. Brief summary is a pleasant 37-year-old 5 para 3 female mid to labor and delivery at 39 and one sevenths weeks gestation for elective repeat section and tubal ligation. Patient undergoes above-named surgeries. Please see dictated operative note. By postoperative #2 patient's felt be stable for discharge home follow up with me in 1 week for an incision check. Procedures: Repeat low transverse section and bilateral partial salpingectomy. Patient Condition at Discharge: Good Plan - Discharge Summary New Discharge Prescriptions: New Ibuprofen [Motrin] 600 mg PO Q6HR PRN #40 tab PRN Reason: Mild Pain Or Fever >= 100.5 No Action Pnv with Ca,No.72/Iron/FA [ Plus Multivitamin Tab] 1 tab PO DAILY INSULIN LISPRO (humaLOG) [humaLOG] 5 units SQ AC-TID Insulin Detemir [Levemir] 17 unit SQ HS Discharge Medication List Pnv with Ca,No.72/Iron/FA [ Plus Multivitamin Tab] 1 tab PO DAILY [History] INSULIN LISPRO (humaLOG) [humaLOG] 5 units SQ AC-TID 11/25/17 [History] Insulin Detemir [Levemir] 17 unit SQ HS 11/25/17 [History] Ibuprofen [Motrin] 600 mg PO Q6HR PRN #40 tab 12/03/17 [Rx] Follow up Appointment(s)/Referral(s): David Swenson MD [STAFF PHYSICIAN] - 12/10/17 8:30 am (Patient also has a check on January 14 at 9:45 AM.) Patient Instructions/Handouts: (DC) Activity/Diet/Wound Care/Special Instructions: No heavy lifting or strenuous activity for 6 weeks. No intercourse for 6 weeks. Please call if any fever, chills, excessive vaginal bleeding, and/or abdominal pain. Discharge Disposition: HOME SELF-CARE
[2017-12-03] MEDS: SENNOSIDES-DOCUSATE SODIUM 1 EACH TAB PO SCH (07:43)
[2017-12-03 08:06] VITALS: BP 114/75; PULSE 66; RESP 18; TEMP 98.5
== END 2017-12-03 14:10 | disposition home or self-care (01) | DRG 765 ==
LOC: 4FBP 06:02
PROVIDERS: ADMIT Obstetrics & Gynecology; ATTEND Obstetrics & Gynecology
PROC: 0UB70ZZ Excision of Bilateral Fallopian Tubes, Open Approach (ICD-10-PCS; 2017-12-01)
PROC: 00HU33Z Insertion of Infusion Device into Spinal Canal, Percutaneous Approach (ICD-10-PCS; 2017-12-01)
PROC: 3E0R3NZ Introduction of Analgesics, Hypnotics, Sedatives into Spinal Canal, Percutaneous Approach (ICD-10-PCS; 2017-12-01)
PROC: 10D00Z1 Extraction of Products of Conception, Low, Open Approach (ICD-10-PCS; principal; 2017-12-01 08:00)
DX: O34.211 Maternal care for low transverse scar from previous cesarean delivery (principal); O26.833 Pregnancy related renal disease, third trimester; N20.0 Calculus of kidney; O24.424 Gestational diabetes mellitus in childbirth, insulin controlled; O36.63X0 Maternal care for excessive fetal growth, third trimester, not applicable or unspecified; K21.9 Gastro-esophageal reflux disease without esophagitis; O69.81X0 Labor and delivery complicated by cord around neck, without compression, not applicable or unspecified; K58.9 Irritable bowel syndrome, unspecified; O99.62 Diseases of the digestive system complicating childbirth; Z79.899 Other long term (current) drug therapy; Z37.0 Single live birth; Z3A.39 39 weeks gestation of pregnancy; Z90.89 Acquired absence of other organs; Z87.19 Personal history of other diseases of the digestive system; Z90.49 Acquired absence of other specified parts of digestive tract
CPT/HCPCS: 85025; 86850; 86900; 86901; 88302; 88307

== ENCOUNTER → 2018-03-10 | Outpatient (CLI) | payer BC ==
--- NOTE | 2018-03-10 09:49 | US ---
EXAMINATION TYPE: US abdomen limited DATE OF EXAM: 03/10/2018 COMPARISON: NONE CLINICAL HISTORY: R94.5 ELEVATED LIVER ENZYMES,ABD FOCUS ON RUQ. 4 episodes of epigastric pain, postp artum 3 months, cholecystectomy, h/o renal stones EXAM MEASUREMENTS: Liver Length: 14.2 cm Gallbladder Wall: Surgically absent CBD: 0.6 cm Right Kidney: 10.5 x 4.3 x 4.9 cm Pancreas: wnl Liver: wnl Gallbladder: Surgically absent Evidence for sonographic Coles's sign: no CBD: wnl Right Kidney: No hydronephrosis or masses seen IMPRESSION: No worrisome intrahepatic mass or intrahepatic ductal dilatation is identified.
== END | disposition home or self-care (01) ==
LOC: RADUSWWP 09:16
PROVIDERS: ATTEND Family Medicine
DX: R94.5 Abnormal results of liver function studies (principal)
CPT/HCPCS: 76705

== ENCOUNTER → 2018-05-14 | Outpatient (CLI) | payer BC ==
--- NOTE | 2018-05-14 15:44 | MR ---
EXAMINATION TYPE: MR MRCP DATE OF EXAM: 05/14/2018 COMPARISON: 03/10/2018 abdominal ultrasound HISTORY: Epigastric Pain and elevated liver enzymes TECHNIQUE: Multiplanar, multisequence images of the abdomen were acquired without intravenous contrast per MRCP protocol. FINDINGS: There is signal dropout on out of phase imaging of the hepatic parenchyma compatible with m ild degree hepatic steatosis. There is abnormal signal, possible volume averaging seen just above the denny hepatis in the left hepatic lobe with irregular signal but could be from the hepatic artery on coronal imaging and adjacent bile ducts. There is minimal intrahepatic biliary ductal dilatation and extrahepatic biliary ductal dilatation with tortuous cystic duct remnant seen. Gallbladder surgicall y absent. There is a tiny 5 mm T2 hyperintense and T1 hypointense lesion at the dorsal aspect of the pancreatic body and T2 nonfat sat and fat sat image 15. There is no dilated pancreatic duct. There is no defini tive communication of this cystic lesion with the pancreatic duct. The adrenal glands, spleen, and left kidney are unremarkable. There is hyperintense and T1 hypointens e too small to accurately characterize 5 mm right renal lesion. Small bowel and large bowel are nondi lated. Focal contour defect of the right inferior pole of the kidney is likely sequela of prior traum a. No adenopathy within the abdomen. Spleen is nonenlarged measuring 10.4 centimeters in craniocaudal dimension. There is diastases recti noted. IMPRESSION: 1. Mild grade hepatic steatosis. 2. Minimal intrahepatic and extrahepatic biliary ductal dilatation, likely postsurgical. No focal kevin t cut off or stricture is seen. 3. 5 mm cystic pancreatic lesion. Six-month follow-up is recommended to ensure stability as this coul d represent a small side branch IPMN, however no direct continuity with the duct is demonstrated. Kiya n pancreatic duct is nondilated. 4. Abnormal signal within the hepatic parenchyma above the denny hepatis is likely volume averaging. Attention on follow-up exams.
== END | disposition home or self-care (01) ==
LOC: RADMRIMAIN 12:24
PROVIDERS: ATTEND Internal Medicine Gastroenterology
DX: K76.0 Fatty (change of) liver, not elsewhere classified (principal); K86.2 Cyst of pancreas; R93.2 Abnormal findings on diagnostic imaging of liver and biliary tract
CPT/HCPCS: 74181

== ENCOUNTER → 2019-06-16 | Outpatient (CLI) | payer BC ==
--- NOTE | 2019-06-17 12:06 | XR ---
Lumbar spine HISTORY: Low back pain, numbness from waist down. 3 views of the lumbar spine There is a mild levoscoliosis. Lumbar vertebral bodies show preserved height and bone mineralization. Disc spaces are maintained. Surgical clips present in the right upper quadrant. Lucency seen over th e right sacral ala may be due to overlying bowel gas. IMPRESSION: Mild spinal curvature. Additional findings above, consider MRI for better evaluation.
== END | disposition home or self-care (01) ==
LOC: RADXRMAIN 16:26
PROVIDERS: ATTEND Family Medicine
DX: M43.8X6 Other specified deforming dorsopathies, lumbar region (principal); Z98.890 Other specified postprocedural states
CPT/HCPCS: 72100

== ENCOUNTER → 2019-08-15 | Outpatient (CLI) | payer BC ==
--- NOTE | 2019-08-15 14:21 | MR ---
EXAMINATION TYPE: MR MRCP DATE OF EXAM: 08/15/2019 COMPARISON: MRCP May 14, 2018. HISTORY: abnormal findings on diagnostic imaging,F/U Standard multiplanar, multisequence MRI departmental protocol Multiplanar, multisequence images of the abdomen were acquired. Thin and thick slice MRCP imaging cre ated on the MRI scanner. FINDINGS: Liver/gallbladder/pancreas/biliary system: Liver size is stable and normal. Liver redemonstrates mild signal dropout consistent with mild diffuse fatty infiltration. No significant progression from prio r MRI. No suspicious solid or cystic masses. Gallbladder not seen and presumed surgically absent. Morales creas normal in size without suspicious masses. Pancreatic duct visualized to bifurcation without lefty picious narrowing or dilatation. No abnormal intrahepatic or extra hepatic biliary dilatation with st able mild beading centrally near denny hepatis. Maximum diameter is 8 mm at this level which is withi n normal limits after cholecystectomy. Other: Lung bases are clear. Spleen and both adrenal glands are normal in size. Occasional subcentime ter T2 hyperintense round lesion favoring thin-walled cysts bilaterally both kidneys redemonstrated. No suspicious bowel dilatation. No abdominal ascites. No greater than 1 cm abdominal adenopathy. Osse ous structures are intact. IMPRESSION: Stable slight beading of the central extrahepatic biliary ducts without abnormal dilatati on. No suspicious solid or cystic masses identified.
== END | disposition home or self-care (01) ==
LOC: RADMRIMAIN 13:07
PROVIDERS: ATTEND Physician Assistant
DX: R93.89 Abnormal findings on diagnostic imaging of other specified body structures (principal)
CPT/HCPCS: 74181

== ENCOUNTER 2020-09-07 16:07 | Emergency (ER) | payer BC ==
[2020-09-07] MEDS ORDERED: SODIUM CHLORIDE 0.9% 1,000 ML IV ONE (16:39)
[2020-09-07] MEDS ORDERED: ACETAMINOPHEN TAB 500 MG TAB PO STA (16:39)
[2020-09-07 16:58] LABS: Basophils # (A) 0.1 k/uL (0-0.2); Basophils % (A) 0 %; Eosinophils # (A) 0.2 k/uL (0-0.7); Eosinophils % (A) 1 %; HCT 40.9 % (34.0-46.0); HGB 13.7 gm/dL (11.4-16.0); Lymphocytes # (A) 0.6 k/uL (1.0-4.8); Lymphocytes % (A) 5 %; MCHC 33.4 g/dL (31.0-37.0); MCV 86.6 fL (80.0-100.0); Monocytes # (A) 0.7 k/uL (0-1.0); Monocytes % (A) 5 %; Neutrophils # (A) 11.3 k/uL (1.3-7.7); Neutrophils % (A) 87 %; Platelet Count 215 k/uL (150-450); RBC 4.72 m/uL (3.80-5.40); RDW 12.9 % (11.5-15.5); WBC 12.9 k/uL (3.8-10.6)
[2020-09-07 17:12] LABS: Appearance,Urine Turbid (Clear); Bacteria,Urine Many /hpf; Bilirubin,Urine Negative (Negative); Blood,Urine Moderate (Negative); Color,Urine Yellow; Glucose,Urine (UA) Negative (Negative); Ketones,Urine 3+ (Negative); Leukocyte Esterase,Urine Large (Negative); Mucus,Urine Few /hpf; Nitrite,Urine Positive (Negative); Protein,Urine 1+ (Negative); RBC,Urine 48 /hpf (0-5); Specific Gravity,Urine 1.017 (1.001-1.035); Squamous Epithelial Cell,Urine 13 /hpf (0-4); Urobilinogen,Urine <2.0 mg/dL (<2.0); WBC,Urine >182 /hpf (0-5)
[2020-09-07 17:18] LABS: ALT 46 U/L (4-34); AST 68 U/L (14-36); African American GFR (CKD) >90 (>60 ml/min/1.73 sqM); Albumin 4.6 g/dL (3.5-5.0); Alkaline Phosphatase 150 U/L (38-126); Anion Gap 12 mmol/L; Blood Urea Nitrogen 12 mg/dL (7-17); Calcium 9.2 mg/dL (8.4-10.2); Carbon Dioxide 23 mmol/L (22-30); Chloride 101 mmol/L (98-107); Glucose 127 mg/dL (74-99); Non-African American GFR(CKD) >90 (>60 ml/min/1.73 sqM); Potassium 3.6 mmol/L (3.5-5.1); Sodium 136 mmol/L (137-145); Total Bilirubin 1.2 mg/dL (0.2-1.3); Total Protein 8.4 g/dL (6.3-8.2)
[2020-09-07] MEDS ORDERED: cefTRIAXone IN SWFI 1,000 MG/10 ML SYRINGE IVP STA (17:19)
--- NOTE | 2020-09-07 17:25 | ED ---
General Adult HPI - General Chief complaint: Weakness Stated complaint: Fall, possible head injury Time Seen by Provider: 09/07/20 16:16 Source: patient Mode of arrival: ambulatory Limitations: no limitations - History of Present Illness Initial comments: 39-year-old female patient presents to the emergency department today for evaluation of generalized weakness, body aches, and generally not feeling well. States she had a massage a couple of days ago and thought her symptoms are from nap they have been persistent. States she also has a significant headache. States she did get dizzy and fall today she believes she hit her head but she cannot remember. She does report some nausea and decreased appetite. Denies any vomiting. Denies passing out. Denies any neck or back pain. Denies any extremity injury. She denies any sore throat, nasal congestion, or cough. Denies any constipation or diarrhea. Patient denies any recent rash, cough, sh ortness of breath, chest pain, abdominal pain, back pain, numbness, tingling, dizziness, weakness, hematuria, dysuria, urinary urgency, urinary frequency, headache, visual changes, or any other complaints. - Related Data Home Medications Medication Instructions Recorded Confirmed Pnv with Ca,No.72/Iron/FA 1 tab PO DAILY 06/06/14 12/01/17 [ Plus Multivitamin Tab] INSULIN LISPRO (humaLOG) [humaLOG] 5 units SQ AC-TID 11/25/17 12/01/17 Insulin Detemir (Levemir) [Levemir] 17 unit SQ HS 11/25/17 12/01/17 Previous Rx's Medication Instructions Recorded Ibuprofen [Motrin] 600 mg PO Q6HR PRN #40 tab 12/03/17 Cephalexin [Keflex] 500 mg PO Q6HR #40 cap 09/07/20 Allergies Allergy/AdvReac Type Severity Reaction Status Date / Time No Known Allergies Allergy Verified 09/07/20 16:14 Review of Systems ROS Statement: Those systems with pertinent positive or pertinent negative responses have been documented in the HPI. ROS Other: All systems not noted in ROS Statement are negative. Past Medical History Past Medical History: GERD/Reflux, Skin Disorder Additional Past Medical History / Comment(s): gestational diabetes with first two pregnancies, eczema, on Rx for UTI; history of IBS; history of kidney stones this . History of Any Multi-Drug Resistant Organisms: None Reported Past Surgical History: Adenoidectomy, Section, Cholecystectomy, Hernia Repair Additional Past Surgical History / Comment(s): myringotomy Past Anesthesia/Blood Transfusion Reactions: Previous Problems w/ Anesthesia Additional Past Anesthesia/Blood Transfusion Reaction / Comment(s): "i feel loopy after" Past Psychological History: No Psychological Hx Reported Smoking Status: Never smoker Past Alcohol Use History: None Reported Past Drug Use History: None Reported - Past Family History Mother Family Medical History: Cancer Additional Family Medical History / Comment(s): Cervical General Exam Limitations: no limitations General appearance: alert, in no apparent distress, other (This is a well- developed, well-nourished adult male patient in no acute distress.) Eye exam: Present: normal appearance, PERRL, EOMI. Absent: scleral icterus, conjunctival injection, periorbital swelling ENT exam: Present: normal exam, normal oropharynx, mucous membranes moist Respiratory exam: Present: normal lung sounds bilaterally. Absent: respiratory distress, wheezes, rales, rhonchi, stridor Cardiovascular Exam: Present: regular rate, normal rhythm, normal heart sounds. Absent: systolic murmur, diastolic murmur, rubs, gallop, clicks GI/Abdominal exam: Present: soft, normal bowel sounds. Absent: distended, tenderness, guarding, rebound, rigid Neurological exam: Present: alert, oriented X3, CN II-XII intact Psychiatric exam: Present: normal affect, normal mood Skin exam: Present: warm, dry, intact, normal color. Absent: rash Course Vital Signs 09/07/20 09/07/20 09/07/20 16:09 17:48 18:51 Temperature 99.6 F 99.1 F Pulse Rate 129 H 112 H 101 H Respiratory 18 20 18 Rate Blood Pressure 109/73 102/63 108/60 O2 Sat by Pulse 97 99 99 Oximetry Medical Decision Making - Medical Decision Making 39-year-old female patient presented to the emergency department today for evaluation of generalized body aches, not feeling well, no appetite. She had low-grade temperature at home around 99. Physical examination was unremarkable. Abdomen soft and nontender. Labs reviewed and did reveal elevated white blood cell count at 12.9 with neutrophils of 11.3. AST and ALTs are mildly elevated at 68 and 46 alk phos is 150. Bilirubin is normal. Urinalysis shows a turbid appearance with 1+ protein, 3+ ketones, moderate blood, positive nitrite, large leukocyte esterase, 48 red blood cells, greater than 182 white blood cells, moderate white blood cell clumps, many bacteria, and few mucus. HCG is negative. She tested negative for COVID-19. We did discuss results and findings. She'll be treated for urinary tract infection with 1 dose of IV Rocephin here and prescription for Keflex. She was reporting headache and with her fall and possible head injury we did perform CT brain without contrast. CT was negative. She is instructed to follow-up with her primary care physician for recheck in 1-2 days. Return parameters were discussed in detail. She verbalizes understanding and agrees with this plan. Case discussed with my attending Dr. Suárez. - Lab Data Result diagrams: 09/07/20 16:39 09/07/20 16:39 Lab Results 09/07/20 09/07/20 09/07/20 Range/Units 16:39 16:39 16:39 WBC 12.9 H (3.8-10.6) k/uL RBC 4.72 (3.80-5.40) m/uL Hgb 13.7 (11.4-16.0) gm/dL Hct 40.9 (34.0-46.0) % MCV 86.6 (80.0-100.0) fL MCH 29.0 (25.0-35.0) pg MCHC 33.4 (31.0-37.0) g/dL RDW 12.9 (11.5-15.5) % Plt Count 215 (150-450) k/uL MPV 7.0 Neutrophils % 87 % Lymphocytes % 5 % Monocytes % 5 % Eosinophils % 1 % Basophils % 0 % Neutrophils # 11.3 H (1.3-7.7) k/uL Lymphocytes # 0.6 L (1.0-4.8) k/uL Monocytes # 0.7 (0-1.0) k/uL Eosinophils # 0.2 (0-0.7) k/uL Basophils # 0.1 (0-0.2) k/uL Sodium (137-145) mmol/L Potassium (3.5-5.1) mmol/L Chloride (98-107) mmol/L Carbon Dioxide (22-30) mmol/L Anion Gap mmol/L BUN (7-17) mg/dL Creatinine (0.52-1.04) mg/dL Est GFR (CKD-EPI)AfAm (>60 ml/min/1.73 sqM) Est GFR (CKD-EPI)NonAf (>60 ml/min/1.73 sqM) Glucose (74-99) mg/dL Calcium (8.4-10.2) mg/dL Total Bilirubin (0.2-1.3) mg/dL AST (14-36) U/L ALT (4-34) U/L Alkaline Phosphatase (38-126) U/L Total Protein (6.3-8.2) g/dL Albumin (3.5-5.0) g/dL Urine Color Yellow Urine Appearance Turbid H (Clear) Urine pH 6.0 (5.0-8.0) Ur Specific [place] 1.017 (1.001-1.035) Urine Protein 1+ H (Negative) Urine Glucose (UA) Negative (Negative) Urine Ketones 3+ H (Negative) Urine Blood Moderate H (Negative) Urine Nitrite Positive H (Negative) Urine Bilirubin Negative (Negative) Urine Urobilinogen <2.0 (<2.0) mg/dL Ur Leukocyte Esterase Large H (Negative) Urine RBC 48 H (0-5) /hpf Urine WBC >182 H (0-5) /hpf Urine WBC Clumps Moderate H (None) /hpf Ur Squamous Epith Cells 13 H (0-4) /hpf Urine Bacteria Many H (None) /hpf Urine Mucus Few H (None) /hpf Urine HCG, Qual Not Detected (Not Detectd) Coronavirus (PCR) (Not Detectd) 09/07/20 09/07/20 Range/Units 16:39 16:39 WBC (3.8-10.6) k/uL RBC (3.80-5.40) m/uL Hgb (11.4-16.0) gm/dL Hct (34.0-46.0) % MCV (80.0-100.0) fL MCH (25.0-35.0) pg MCHC (31.0-37.0) g/dL RDW (11.5-15.5) % Plt Count (150-450) k/uL MPV Neutrophils % % Lymphocytes % % Monocytes % % Eosinophils % % Basophils % % Neutrophils # (1.3-7.7) k/uL Lymphocytes # (1.0-4.8) k/uL Monocytes # (0-1.0) k/uL Eosinophils # (0-0.7) k/uL Basophils # (0-0.2) k/uL Sodium 136 L (137-145) mmol/L Potassium 3.6 (3.5-5.1) mmol/L Chloride 101 (98-107) mmol/L Carbon Dioxide 23 (22-30) mmol/L Anion Gap 12 mmol/L BUN 12 (7-17) mg/dL Creatinine 0.64 (0.52-1.04) mg/dL Est GFR (CKD-EPI)AfAm >90 (>60 ml/min/1.73 sqM) Est GFR (CKD-EPI)NonAf >90 (>60 ml/min/1.73 sqM) Glucose 127 H (74-99) mg/dL Calcium 9.2 (8.4-10.2) mg/dL Total Bilirubin 1.2 (0.2-1.3) mg/dL AST 68 H (14-36) U/L ALT 46 H (4-34) U/L Alkaline Phosphatase 150 H (38-126) U/L Total Protein 8.4 H (6.3-8.2) g/dL Albumin 4.6 (3.5-5.0) g/dL Urine Color Urine Appearance (Clear) Urine pH (5.0-8.0) Ur Specific [place] (1.001-1.035) Urine Protein (Negative) Urine Glucose (UA) (Negative) Urine Ketones (Negative) Urine Blood (Negative) Urine Nitrite (Negative) Urine Bilirubin (Negative) Urine Urobilinogen (<2.0) mg/dL Ur Leukocyte Esterase (Negative) Urine RBC (0-5) /hpf Urine WBC (0-5) /hpf Urine WBC Clumps (None) /hpf Ur Squamous Epith Cells (0-4) /hpf Urine Bacteria (None) /hpf Urine Mucus (None) /hpf Urine HCG, Qual (Not Detectd) Coronavirus (PCR) Not Detected (Not Detectd) - Radiology Data Radiology results: report reviewed, image reviewed CT brain without contrast is obtained. Report reviewed in its entirety. Impression by Dr. Marley shows no acute intracranial hemorrhage, mass effect, or midline shift. Disposition Clinical Impression: Urinary tract infection Disposition: HOME SELF-CARE Condition: Good Instructions (If sedation given, give patient instructions): Urinary Tract Infection in Women (ED) Additional Instructions: Complete antibiotic prescription in full. Increase fluids. Take Tylenol and Motrin for pain and fever control. Return to the emergency department for any new, worsening, or concerning symptoms. Prescriptions: Cephalexin [Keflex] 500 mg PO Q6HR #40 cap Is patient prescribed a controlled substance at d/c from ED?: No Referrals: Gallo Pablo DO [Primary Care Provider] - 1-2 days Time of Disposition: 17:25
[2020-09-07 17:50] VITALS: TEMP 99.1
--- NOTE | 2020-09-07 18:37 | CT ---
EXAMINATION TYPE: CT brain wo con DATE OF EXAM: 09/07/2020 COMPARISON: None available. HISTORY: Dizziness and weakness. CT DLP: 1099.4 mGycm. Automated Exposure Control for Dose Reduction was Utilized. TECHNIQUE: CT scan of the head is performed without contrast. FINDINGS: There is no acute intracranial hemorrhage, mass effect, or midline shift identified. The ventricles and sulci are within normal limits in size. The globes are intact and the visualized sin uses are clear. IMPRESSION: No acute intracranial hemorrhage, mass effect, or midline shift is seen.
[2020-09-07] MEDS ORDERED: IBUPROFEN 600 MG STARTER PACK 4 TAB BTL PO STA (18:39)
[2020-09-07 18:53] VITALS: BP 108/60; PULSE 101; RESP 18
== END 2020-09-07 18:53 | disposition home or self-care (01) ==
LOC: EC 16:07
DX: N39.0 Urinary tract infection, site not specified (principal); R53.1 Weakness; R51.9 Headache, unspecified; R74.01 Elevation of levels of liver transaminase levels; D72.829 Elevated white blood cell count, unspecified; Z20.822 Contact with and (suspected) exposure to COVID-19; Z79.4 Long term (current) use of insulin
CPT/HCPCS: 36415; 80053; 85025; 81001; 81025; 87086; 87635; 70450; 99285; 96374; 96361; J0696

== ENCOUNTER 2021-02-23 06:06 | Emergency (ER) | payer BC ==
--- NOTE | 2021-02-23 06:49 | ED ---
General Adult HPI - General Chief complaint: Upper Respiratory Infection Stated complaint: cough,dizziness Time Seen by Provider: 02/23/21 06:14 Source: patient, RN notes reviewed Mode of arrival: wheelchair Limitations: no limitations - History of Present Illness Initial comments: 40-year-old female with a past medical history of GERD, tubal ligation presents to the emergency room for a chief complaint of cough. Patient states she was sitting under an open window last night. States she woke up about an hour ago and was coughing. Patient states the exterior of her chest felt like her skin was burning. Denies any chest pain. Patient states that she is nervous that she has had Hunter virus. She also wants to be checked for UTI. Denies chance of . Patient denies fevers.Patient has no other complaints at this time including shortness of breath, chest pain, abdominal pain, nausea or vomiting, headache, or visual changes. - Related Data Home Medications Medication Instructions Recorded Confirmed Pnv with Ca,No.72/Iron/FA 1 tab PO DAILY 06/06/14 12/01/17 [ Plus Multivitamin Tab] INSULIN LISPRO (humaLOG) [humaLOG] 5 units SQ AC-TID 11/25/17 12/01/17 Insulin Detemir (Levemir) [Levemir] 17 unit SQ HS 11/25/17 12/01/17 Previous Rx's Medication Instructions Recorded Ibuprofen [Motrin] 600 mg PO Q6HR PRN #40 tab 12/03/17 cephALEXin [Keflex] 500 mg PO Q6HR #40 cap 09/07/20 Benzonatate [Tessalon Perles] 200 mg PO Q8H PRN #15 capsule 02/23/21 Allergies Allergy/AdvReac Type Severity Reaction Status Date / Time No Known Allergies Allergy Verified 02/23/21 06:12 Review of Systems ROS Statement: Those systems with pertinent positive or pertinent negative responses have been documented in the HPI. ROS Other: All systems not noted in ROS Statement are negative. Past Medical History Past Medical History: GERD/Reflux, Skin Disorder Additional Past Medical History / Comment(s): gestational diabetes with first two pregnancies, eczema, on Rx for UTI; history of IBS; history of kidney stones this . History of Any Multi-Drug Resistant Organisms: None Reported Past Surgical History: Adenoidectomy, Section, Cholecystectomy, Hernia Repair Additional Past Surgical History / Comment(s): myringotomy Past Anesthesia/Blood Transfusion Reactions: Previous Problems w/ Anesthesia Additional Past Anesthesia/Blood Transfusion Reaction / Comment(s): "i feel loopy after" Past Psychological History: No Psychological Hx Reported Smoking Status: Never smoker Past Alcohol Use History: Occasional Past Drug Use History: None Reported - Past Family History Mother Family Medical History: Cancer Additional Family Medical History / Comment(s): Cervical General Exam Limitations: no limitations General appearance: alert, in no apparent distress Head exam: Present: atraumatic, normocephalic, normal inspection Eye exam: Present: normal appearance, PERRL, EOMI. Absent: scleral icterus, conjunctival injection, periorbital swelling ENT exam: Present: normal exam, mucous membranes moist Neck exam: Present: normal inspection, full ROM. Absent: tenderness, meningismus, lymphadenopathy Respiratory exam: Present: normal lung sounds bilaterally. Absent: respiratory distress, wheezes, rales, rhonchi, stridor Cardiovascular Exam: Present: regular rate, normal rhythm, normal heart sounds. Absent: systolic murmur, diastolic murmur, rubs, gallop, clicks GI/Abdominal exam: Present: soft, normal bowel sounds. Absent: distended, tenderness, guarding, rebound, rigid Neurological exam: Present: alert Course Vital Signs 02/23/21 06:08 Temperature 98.2 F Pulse Rate 68 Respiratory 22 Rate Blood Pressure 146/73 O2 Sat by Pulse 98 Oximetry Medical Decision Making - Medical Decision Making vitals are stable. Patient is well-appearing. Urinalysis unremarkable. Hunter virus is negative. Chest x-ray shows no acute process. Patient likely has viral respiratory infection. Recommend that she follow up with primary care and return for any worsening symptoms. - Lab Data Lab Results 02/23/21 02/23/21 Range/Units 06:46 06:46 Urine Color Yellow Urine Appearance Clear (Clear) Urine pH 5.5 (5.0-8.0) Ur Specific [place] 1.011 (1.001-1.035) Urine Protein Negative (Negative) Urine Glucose (UA) Negative (Negative) Urine Ketones Negative (Negative) Urine Blood Negative (Negative) Urine Nitrite Negative (Negative) Urine Bilirubin Negative (Negative) Urine Urobilinogen <2.0 (<2.0) mg/dL Ur Leukocyte Esterase Small H (Negative) Urine RBC 1 (0-5) /hpf Urine WBC 7 H (0-5) /hpf Ur Squamous Epith Cells 2 (0-4) /hpf Hyaline Casts 1 (0-2) /lpf Urine Mucus Occasional H (None) /hpf Coronavirus (PCR) Not Detected (Not Detectd) Disposition Clinical Impression: Cough Disposition: HOME SELF-CARE Condition: Good Instructions (If sedation given, give patient instructions): Acute Cough (ED) Additional Instructions: Please take cough medicine as directed. Follow-up with your doctor in one to 2 days. Return to the emergency room for any worsening symptoms. Prescriptions: Benzonatate [Tessalon Perles] 200 mg PO Q8H PRN #15 capsule PRN Reason: Cough Is patient prescribed a controlled substance at d/c from ED?: No Referrals: Gallo Pablo DO [Primary Care Provider] - 1-2 days Time of Disposition: 07:32
--- NOTE | 2021-02-23 06:58 | XR ---
EXAMINATION TYPE: XR chest 1V portable DATE OF EXAM: 02/23/2021 COMPARISON: None HISTORY: Cough TECHNIQUE: Single frontal view of the chest is obtained. FINDINGS: There is no focal air space opacity, pleural effusion, or pneumothorax seen. The cardiac silhouette size is within normal limits. The osseous structures are intact. IMPRESSION: No acute process.
[2021-02-23 07:07] LABS: Appearance,Urine Clear (Clear); Bilirubin,Urine Negative (Negative); Blood,Urine Negative (Negative); Color,Urine Yellow; Glucose,Urine (UA) Negative (Negative); Hyaline Casts,Urine 1 /lpf (0-2); Ketones,Urine Negative (Negative); Leukocyte Esterase,Urine Small (Negative); Mucus,Urine Occasional /hpf; Nitrite,Urine Negative (Negative); PH, Urine 5.5 (5.0-8.0); Protein,Urine Negative (Negative); RBC,Urine 1 /hpf (0-5); Specific Gravity,Urine 1.011 (1.001-1.035); Squamous Epithelial Cell,Urine 2 /hpf (0-4); Urobilinogen,Urine <2.0 mg/dL (<2.0); WBC,Urine 7 /hpf (0-5)
[2021-02-23 07:47] VITALS: BP 137/74; PULSE 69; RESP 15; TEMP 98.4
== END 2021-02-23 07:46 | disposition home or self-care (01) ==
LOC: EC 06:06
DX: R05 Cough (principal); R42 Dizziness and giddiness; K21.9 Gastro-esophageal reflux disease without esophagitis; K58.9 Irritable bowel syndrome, unspecified; Z79.1 Long term (current) use of non-steroidal anti-inflammatories (NSAID); Z87.440 Personal history of urinary (tract) infections; Z87.442 Personal history of urinary calculi; Z20.822 Contact with and (suspected) exposure to COVID-19; Z90.49 Acquired absence of other specified parts of digestive tract
CPT/HCPCS: 71045; 81001; 87635; 99284

== ENCOUNTER 2021-10-15 21:13 | Emergency (ER) | payer BC ==
[2021-10-15 21:43] VITALS: TEMP 100.3
[2021-10-15] MEDS ORDERED: HYDROcodone/APAP 5-325MG 1 EACH TAB PO STA (22:44)
--- NOTE | 2021-10-15 22:51 | ED ---
General Adult HPI - General Chief complaint: Extremity Injury, Upper Stated complaint: Fell,Injury to LT side Time Seen by Provider: 10/15/21 22:09 Source: patient, RN notes reviewed Mode of arrival: ambulatory Limitations: no limitations - History of Present Illness Initial comments: 40-year-old female presents to the emergency department accompanied by her spouse for evaluation of left side pain. Patient states she slipped in the shower around 8:00 this evening. States when she fell she struck her left side on the bathtub. Complains of pain underneath and around the left scapula and along the left lateral ribs. Patient states she was seen by her PCP earlier today due to a cough and was diagnosed with costochondritis at that time. Patient denies any head, neck, or back pain. No loss of consciousness. Denies any other injuries. - Related Data Home Medications Medication Instructions Recorded Confirmed Pnv with Ca,No.72/Iron/FA 1 tab PO DAILY 06/06/14 12/01/17 [ Plus Multivitamin Tab] INSULIN LISPRO (humaLOG) [humaLOG] 5 units SQ AC-TID 11/25/17 12/01/17 Insulin Detemir (Levemir) [Levemir] 17 unit SQ HS 11/25/17 12/01/17 Previous Rx's Medication Instructions Recorded Ibuprofen [Motrin] 600 mg PO Q6HR PRN #40 tab 12/03/17 cephALEXin [Keflex] 500 mg PO Q6HR #40 cap 09/07/20 Benzonatate [Tessalon Perles] 200 mg PO Q8H PRN #15 capsule 02/23/21 HYDROcodone/APAP 5-325MG [Brethren 5] 1 each PO Q6HR PRN #6 tab 10/16/21 Allergies Allergy/AdvReac Type Severity Reaction Status Date / Time No Known Allergies Allergy Verified 10/15/21 21:42 Review of Systems ROS Statement: Those systems with pertinent positive or pertinent negative responses have been documented in the HPI. ROS Other: All systems not noted in ROS Statement are negative. Past Medical History Past Medical History: GERD/Reflux, Skin Disorder Additional Past Medical History / Comment(s): gestational diabetes with first two pregnancies, eczema, on Rx for UTI; history of IBS; history of kidney stones this . History of Any Multi-Drug Resistant Organisms: None Reported Past Surgical History: Adenoidectomy, Section, Cholecystectomy, Hernia Repair Additional Past Surgical History / Comment(s): myringotomy Past Anesthesia/Blood Transfusion Reactions: Previous Problems w/ Anesthesia Additional Past Anesthesia/Blood Transfusion Reaction / Comment(s): "i feel lo opy after" Past Psychological History: No Psychological Hx Reported Smoking Status: Never smoker Past Alcohol Use History: Occasional Past Drug Use History: None Reported - Past Family History Mother Family Medical History: Cancer Additional Family Medical History / Comment(s): Cervical General Exam Limitations: no limitations (Well-developed, well-nourished female in no acute distress. Initial temperature 100.3, recheck 98.7, pulse 69, respirations 18, blood pressure 132/87, pulse ox 100% on room air.) General appearance: alert, in no apparent distress Neck exam: Present: normal inspection, full ROM. Absent: tenderness, meningismus, lymphadenopathy Respiratory exam: Present: normal lung sounds bilaterally, chest wall tenderness (Left lateral-posterior rib pain around ribs 6, 7 & 8. No crepitus or palpable step-off.). Absent: respiratory distress, wheezes, rales, rhonchi, stridor Cardiovascular Exam: Present: regular rate, normal rhythm, normal heart sounds. Absent: systolic murmur, diastolic murmur, rubs, gallop, clicks GI/Abdominal exam: Present: soft, normal bowel sounds. Absent: distended, tenderness, guarding, rebound, rigid Left General: Present: normal inspection Shoulder Exam: Present: normal inspection, tenderness (Tenderness upon palpation of the left scapula; no pain upon palpation of the shoulder joint). Absent: full ROM (patient is able to move shoulder but complains of scapular pain with movement), swelling, crepitus, erythema, tenderness over AC joint Upper Arm exam: Present: normal inspection, full ROM. Absent: tenderness, sw elling Forearm Wrist exam: Present: normal inspection, full ROM. Absent: tenderness, swelling Vascular: Present: normal capillary refill, radial pulse, brachial pulse, ulnar pulse. Absent: vascular compromise, Pallo Back exam: Present: normal inspection. Absent: paraspinal tenderness, vertebral tenderness Neurological exam: Present: alert, oriented X3, CN II-XII intact Psychiatric exam: Present: normal affect, normal mood Skin exam: Present: warm, dry, intact, normal color. Absent: rash Course Vital Signs 10/15/21 10/16/21 21:41 00:41 Temperature 100.3 F H Pulse Rate 69 60 Respiratory 18 16 Rate Blood Pressure 132/87 114/76 O2 Sat by Pulse 100 98 Oximetry - Reevaluation(s) Reevaluation #1: 10/15/21 22:34 Discussed patient's elevated temperature. As she does not have an elevated heart rate nor evidence of infection, I asked if she had had anything hot to drink that may alter the measurement. States prior to arrival she has been in a hot shower and her had the heat on quite high in the car enroute here. After reviewing results and completing physical exam, this is the most likely explanation. Repeat oral temperature is 98.7 and 98.2 sequentially. Medical Decision Making - Medical Decision Making 40-year-old female with no significant past medical history presents to the emergency department for evaluation of left scapula and rib pain status post fall in the shower. Upon exam, patient is well-appearing and in minimal distress. Pain is elicited upon palpation of the left posterior lateral ribs and scapula. She does not have shoulder or clavicle deformity or discomfort. X-rays were obtained showing negative left scapula exam and nondisplaced left- sided rib fractures. Patient was given medication while present in the emergency department. Explained the importance of supportive deep breathing exercises. Discussed the risk of developing pneumonia. Encouraged frequent gentle activity. Patient was prescribed a short course of pain medication and was advised on safe use. She did request finding or splint, however explained that this was not appropriate treatment. Patient verbalizes understanding. Instructed to follow-up with PCP for recheck. Return parameters were discussed in detail. Attending: Mikel. - Radiology Data Radiology results: report reviewed, image reviewed X-ray of the left ribs with PA chest was obtained. Report was reviewed entirety. Impression per Dr. Hamm is acute left-sided rib fractures. No pneumothorax. Normal heart. X-ray of the left scapula. Report was reviewed in its entirety. Impression per Dr. Hamm negative left scapula exam. Disposition Clinical Impression: Left rib fracture, Fall Disposition: HOME SELF-CARE Condition: Stable Instructions (If sedation given, give patient instructions): Rib Fracture (ED) Additional Instructions: Splint using a pillow when coughing or deep breathing. Take 10 deep breaths every hour while awake. Motrin for mild-moderate discomfort, norco for more severe pain. Follow up with your PCP for a recheck by Thursday. Return to the emergency department with any new, worsening or concerning symptoms. Prescriptions: HYDROcodone/APAP 5-325MG [Brethren 5] 1 each PO Q6HR PRN #6 tab PRN Reason: Pain Is patient prescribed a controlled substance at d/c from ED?: Yes When asked, does pt state using other controlled substances?: No If prescribed controlled substance>3 days was MAPS reviewed?: Prescribed <3 Days If opioid is for acute pain is fill amount 7 days or less?: Yes If Rx opioid, was Start Talking consent form obtained?: Yes Referrals: Gallo Pablo DO [Primary Care Provider] - 1-2 days Time of Disposition: 00:21
--- NOTE | 2021-10-15 23:22 | XR ---
EXAMINATION TYPE: XR ribs LT w pa chest xray DATE OF EXAM: 10/15/2021 COMPARISON: NONE HISTORY: Pain TECHNIQUE: 4 views FINDINGS: Heart and mediastinum are normal. Lungs are clear of infiltrate. There is no pleural effusi on or pneumothorax. There is fracture of the posterior left fifth and sixth ribs without significant displacement. IMPRESSION: Acute left-sided rib fractures. No pneumothorax. Normal heart.
--- NOTE | 2021-10-15 23:23 | XR ---
EXAMINATION TYPE: XR scapula LT DATE OF EXAM: 10/15/2021 COMPARISON: NONE HISTORY: Pain TECHNIQUE: 2 view FINDINGS: Scapula is intact. Shoulder joint is intact. Soft tissues appear normal. IMPRESSION: Negative left scapula exam.
[2021-10-16 00:41] VITALS: BP 114/76; PULSE 60; RESP 16
== END 2021-10-16 00:41 | disposition home or self-care (01) ==
LOC: EC 21:13
DX: S22.32XA Fracture of one rib, left side, initial encounter for closed fracture (principal); W18.2XXA Fall in (into) shower or empty bathtub, initial encounter; Y93.E1 Activity, personal bathing and showering
CPT/HCPCS: 99284

== ENCOUNTER → 2023-02-19 | Outpatient (CLI) | payer BC ==
--- NOTE | 2023-02-19 18:44 | XR ---
EXAMINATION TYPE: XR abdomen 1V DATE OF EXAM: 02/19/2023 COMPARISON: NONE HISTORY: R 10.9 TECHNIQUE: 2 views of the abdomen are obtained. FINDINGS: Small bowel demonstrates no evidence for dilatation or air fluid levels. Gas and fecal material is seen in non-distended colon. No convincing evidence for pneumoperitoneum. No unusual calcifications. Cholecystectomy clips in the right upper quadrant. The lung bases are clear. The osseous structures are intact. IMPRESSION: Overall nonobstructive bowel gas pattern.
== END | disposition home or self-care (01) ==
LOC: RADXRMAIN 11:07
PROVIDERS: ATTEND Nurse Practitioner Family
DX: R10.9 Unspecified abdominal pain (principal)
CPT/HCPCS: 74018

== ENCOUNTER 2024-02-13 23:49 | Emergency (ER) | payer BC ==
[2024-02-14 00:04] VITALS: TEMP 97.8
[2024-02-14] MEDS: HYDROcodone/APAP 5-325MG 1 EACH TAB PO STA (01:14)
[2024-02-14] MEDS: KETOROLAC 15 MG/ML 1 ML VIAL IM STA (01:16)
--- NOTE | 2024-02-14 01:16 | ED ---
Upper Extremity HPI - General Chief Complaint: Extremity Injury, Upper Stated Complaint: L HAND INJURY Time Seen by Provider: 02/14/24 00:31 Source: patient, RN notes reviewed Mode of arrival: ambulatory Limitations: no limitations - History of Present Illness Initial Comments: This is a 43-year-old female who presents to the emergency department for a left wrist injury. States that she was walking in the parking lot when she tripped and fell face forward. She tried to catch herself with her wrist and has since had pain over the left wrist. Denies hitting her head. Also denies sustaining any other injuries. She also states that she was being treated for UTI. She was initially sent in a prescription for Macrobid, which she states exacerbated her IBS symptoms. She is inquiring about an alternative antibiotic. She is still having suprapubic pressure/pain as well as pain in the lower back. The burning with urination has since improved. Denies any fevers or chills. - Related Data Home Medications Medication Instructions Recorded Confirmed Pnv with Ca,No.72/Iron/FA 1 tab PO DAILY 06/06/14 12/01/17 [ Plus Multivitamin Tab] INSULIN LISPRO (humaLOG) [humaLOG] 5 units SQ AC-TID 11/25/17 12/01/17 Insulin Detemir (Levemir) [Levemir] 17 unit SQ HS 11/25/17 12/01/17 Previous Rx's Medication Instructions Recorded Ibuprofen [Motrin] 600 mg PO Q6HR PRN #40 tab 12/03/17 cephALEXin [Keflex] 500 mg PO Q6HR #40 cap 09/07/20 Benzonatate [Tessalon Perles] 200 mg PO Q8H PRN #15 capsule 02/23/21 HYDROcodone/APAP 5-325MG [[place] 5] 1 each PO Q6HR PRN #6 tab 10/16/21 Ciprofloxacin HCl [Cipro] 250 mg PO BID 5 Days #10 tab 02/14/24 Allergies Allergy/AdvReac Type Severity Reaction Status Date / Time No Known Allergies Allergy Verified 10/15/21 21:42 Review of Systems ROS Statement: Those systems with pertinent positive or pertinent negative responses have been documented in the HPI. ROS Other: All systems not noted in ROS Statement are negative. Past Medical History Past Medical History: GERD/Reflux, Skin Disorder Additional Past Medical History / Comment(s): gestational diabetes with first two pregnancies, eczema, on Rx for UTI; history of IBS; history of kidney stones this . History of Any Multi-Drug Resistant Organisms: None Reported Past Surgical History: Adenoidectomy, Section, Cholecystectomy, Hernia Repair Additional Past Surgical History / Comment(s): myringotomy Past Anesthesia/Blood Transfusion Reactions: Previous Problems w/ Anesthesia Additional Past Anesthesia/Blood Transfusion Reaction / Comment(s): "i feel loopy after" Past Psychological History: No Psychological Hx Reported Smoking Status: Never smoker Past Alcohol Use History: Occasional Past Drug Use History: None Reported - Past Family History Mother Family Medical History: Cancer Additional Family Medical History / Comment(s): Cervical General Exam Limitations: no limitations General appearance: alert, in no apparent distress Head exam: Present: atraumatic, normocephalic, normal inspection Respiratory exam: Present: normal lung sounds bilaterally. Absent: respiratory distress, wheezes, rales, rhonchi, stridor Cardiovascular Exam: Present: regular rate, normal rhythm, normal heart sounds. Absent: systolic murmur, diastolic murmur, rubs, gallop, clicks Extremities exam: Present: other (Tenderness to palpation over the left wrist. Range of motion limited by pain. 2+ radial pulses.) Neurological exam: Present: alert, oriented X3, CN II-XII intact Psychiatric exam: Present: normal affect, normal mood Skin exam: Present: warm, dry, intact, normal color. Absent: rash Course Vital Signs 02/13/24 02/14/24 02/14/24 23:58 02:04 03:53 Temperature 97.8 F Pulse Rate 77 67 67 Respiratory 18 16 16 Rate Blood Pressure 116/79 132/64 122/64 O2 Sat by Pulse 98 98 99 Oximetry Medical Decision Making - Medical Decision Making This is a 43 year old female who presents to the emergency department for left wrist pain. Was pt. sent in by a medical professional or institution? @ -No Did you speak to anyone other than the patient for history? @ -No Did you review nursing and triage notes? @ -Yes, and I agree, it is accurate with regards to the patient's symptoms. Were old charts reviewed? @ -No Differential Diagnosis? @ -Differential Musculoskeletal: Muscular strain, contusion, ligament sprain, fracture, arthritis, septic arthritis, bursitis, cellulitis, muscle spasm, nerve compression, DVT, arterial occlusion, herpes zoster, electrolyte abnormality, tumor.... This is not meant to be in all inclusive list EKG interpreted by me (3pts min.)? @ -Not obtained X-rays interpreted by me (1pt min.)? @ -X-ray of the left hand and wrist obtained. My interpretation identifies no acute fractures CT interpreted by me (1pt min.)? @ -Not obtained U/S interpreted by me (1pt. min.)? @ -Not obtained What testing was considered but not performed? (CT, X-rays, U/S, labs)? Why? @ -None What meds were considered but not given? Why? @ -None Did you discuss the management of the patient with other professionals? @ -No Did you reconcile home meds? @ -No Was smoking cessation discussed for >3mins.? @ -No Was critical care preformed (if so, how long)? @ -No Were there social determinants of health that impacted care today? How? (Homelessness, low income, unemployed, alcoholism, drug addiction, transportation, low edu. Level, literacy, decrease access to med. care, [facility], rehab)? @ -No Was there de-escalation of care discussed even if they declined? (Discuss DNR or withdrawal of care, Hospice)? @ -No What co-morbidities impacted this encounter? (DM, HTN, Smoking, COPD, CAD, Cancer, CVA, Hep., AIDS, mental health diagnosis, sleep apnea, morbid obesity)? @ -None Was patient admitted / discharged? @ -Discharged. X-ray of the left hand and wrist obtained revealing no acute process. Pain was managed in the emergency department. Patient inquired about additional medication for the UTI. She advised that ciprofloxacin is typically effective. Initial dose administered in the emergency department and a prescription for a 5-day course was provided. Advised continuing with ibuprofen and Tylenol as needed for pain relief as well as ice and elevation. Undiagnosed new problem with uncertain prognosis? @ -None Drug Therapy requiring intensive monitoring for toxicity (Heparin, Nitro, Insulin, Cardizem)? @ -None Were any procedures done? @ -None Diagnosis/symptom? @ -Fall, left wrist sprain, UTI Acute, or Chronic, or Acute on Chronic? @ -Acute Uncomplicated (without systemic symptoms) or Complicated (systemic symptoms)? @ -Uncomplicated Side effects of treatment? @ -None Exacerbation, Progression, or Severe Exacerbation] @ -Not applicable Poses a threat to life or bodily function? @ -No Return precautions reviewed in depth, the patient is instructed to return to the emergency department with any new, worsening, or concerning symptoms. Patient v erbalized understanding. This case was discussed in detail with the attending ED physician, Dr. Scott. Presentation, findings, and treatment plan discussed in detail as well. - Radiology Data Radiology results: report reviewed, image reviewed Disposition Clinical Impression: Left wrist sprain, Sprain of left hand, UTI (urinary tract infection) Disposition: HOME SELF-CARE Instructions (If sedation given, give patient instructions): Wrist Injury (ED), Hand Sprain (ED) Additional Instructions: Return to the emergency department with any new, worsening, or concerning symptoms. Take the antibiotic as prescribed for 5 days. Continue taking the metronidazole your PCP prescribed you as well as long as you tolerate it. Alternate with ibuprofen and Tylenol as needed for pain relief. Apply ice and elevate the arm when seated. Prescriptions: Ciprofloxacin HCl [Cipro] 250 mg PO BID 5 Days #10 tab Is patient prescribed a controlled substance at d/c from ED?: No Referrals: Gallo Pablo DO [Primary Care Provider] - 1-2 days Time of Disposition: 02:14
--- NOTE | 2024-02-14 01:29 | XR ---
EXAM: XR Left Hand Complete, 3 or More Views CLINICAL HISTORY: ITS.REASON XR Reason: Fall TECHNIQUE: Frontal, lateral and oblique views of the left hand. COMPARISON: No relevant prior studies available. FINDINGS: Bones/joints: Unremarkable. No acute fracture or subluxation. Soft tissues: Unremarkable. No radiopaque foreign body. IMPRESSION: No acute fracture or subluxation.
--- NOTE | 2024-02-14 01:30 | XR ---
EXAM: XR Left Wrist Complete, 3 or More Views CLINICAL HISTORY: ITS.REASON XR Reason: Fall TECHNIQUE: Frontal, lateral and oblique views of the left wrist. COMPARISON: No relevant prior studies available. FINDINGS: Bones/joints: Unremarkable. No acute fracture. No dislocation. Soft tissues: Unremarkable. No radiopaque foreign body. IMPRESSION: No acute fracture. No dislocation.
[2024-02-14 03:14] VITALS: PULSE 67; RESP 16
[2024-02-14] MEDS: ACET/COD 300 MG/30 MG STARTER PACK 6 TAB BTL PO STA (03:35)
[2024-02-14] MEDS: IBUPROFEN 600 MG STARTER PACK 4 TAB BTL PO STA (03:37)
[2024-02-14] MEDS: CIPROFLOXACIN HCL 250 MG TAB PO STA (03:37)
[2024-02-14 03:55] VITALS: BP 122/64
== END 2024-02-14 03:56 | disposition home or self-care (01) ==
LOC: EC 23:49
DX: S63.502A Unspecified sprain of left wrist, initial encounter (principal); N39.0 Urinary tract infection, site not specified; W01.0XXA Fall on same level from slipping, tripping and stumbling without subsequent striking against object, initial encounter
CPT/HCPCS: 73110; 73130; 99283; 96372; J1885

== ENCOUNTER → 2024-03-04 | Outpatient (CLI) | payer BC, OTHER | END | disposition home or self-care (01) | LOC: LABWHC1 14:53 | PROVIDERS: ATTEND Urology | DX: N20.0 Calculus of kidney | CPT/HCPCS: 36415; 80048; 85025; 87086 ==

== ENCOUNTER → 2024-09-29 | Outpatient (CLI) | payer BC, OTHER ==
--- NOTE | 2024-09-29 12:08 | CT ---
EXAMINATION TYPE: CT abdomen pelvis wo con CT DLP: 351.8 mGycm, Automated exposure control for dose reduction was used. DATE OF EXAM: 09/29/2024 11:52 AM COMPARISON: KUB radiograph 09/12/2024, MR MRCP 05/14/2018, 08/15/2019 CLINICAL INDICATION:Female, 43 years old with history of N20.0 CALCULUS OF KIDNEY; bilateral flank pa in TECHNIQUE: Standard CT of the abdomen and pelvis without IV or oral contrast. Lack of IV or oral co ntrast limits evaluation of solid and hollow organ viscera. Coronal and sagittal reformats were perfo rmed. FINDINGS: LOWER CHEST: Remote healed left-sided rib fractures. The visualized lungs are clear. ABDOMEN LIVER: Unremarkable noncontrast appearance. GALLBLADDER AND BILE DUCTS: The gallbladder is surgically absent. No biliary ductal dilatation. PANCREAS: Unremarkable noncontrast appearance. SPLEEN: Unremarkable noncontrast appearance. ADRENAL GLANDS: Unremarkable noncontrast appearance.. KIDNEYS AND URETERS: No hydronephrosis. No perinephric fat stranding. Multiple bilateral nonobstructi ng small renal calculi with cortical medullary increased attenuation. Largest measures up to 5 mm. Ap proximately 10 calculi within each kidney. No ureteral calculus. PELVIS BLADDER: Underdistended but grossly unremarkable. No calculus. REPRODUCTIVE: Unremarkable noncontrast appearance. ABDOMEN & PELVIS STOMACH AND BOWEL: Stomach and duodenum are unremarkable. No focal bowel wall thickening or surroundi ng inflammatory changes. The appendix is within normal limits. No evidence of bowel obstruction. PERITONEUM: No evidence of pneumoperitoneum or free fluid. VASCULATURE: No evidence of aortic aneurysm. Left pelvic phlebolith. MUSCULOSKELETAL: No acute osseous abnormalities. Remote healed left-sided rib fractures. LYMPH NODES: No gross evidence for lymphadenopathy. SOFT TISSUE/ABDOMINAL WALL: Unremarkable IMPRESSION: 1. No evidence for obstructive uropathy. 2. Multiple nonobstructive bilateral renal calculi with hyperdense appearance of bilateral renal medu lla. 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 [facility], , 09/29/2024 12:06 PM
== END | disposition home or self-care (01) ==
LOC: RADCTMAIN 11:30
PROVIDERS: ATTEND Urology
DX: N20.0 Calculus of kidney (principal)
CPT/HCPCS: 74176